=== PATIENT | female | born 1945 | race Caucasian/White ===

== ENCOUNTER → 2021-02-26 12:24 | Outpatient (CLI) | payer MEDICARE, OTHER, SELFPAY | PROVIDERS: Visit Provider Physician Assistant Surgical | DX: Z11.52 Encounter for screening for COVID-19 (principal) | CPT/HCPCS: 87635; C9803; U0005; U0003 ==

== ENCOUNTER 2024-01-25 15:54 | Inpatient (IN) | payer MEDICARE, OTHER, SELFPAY ==
[2024-01-25 16:04] VITALS: BP 165/52; PULSE 68; RESP 16; TEMP 36.9; O2SAT 97
[2024-01-25 17:15] VITALS: BP 165/52; PULSE 68; RESP 16; TEMP 36.9; O2SAT 97
[2024-01-25 18:07] VITALS: BMI 24.9
[2024-01-25] MEDS: Acetaminophen 325 MG Tablet 650 MG PO (18:16)
[2024-01-25 21:33] VITALS: BP 155/57; PULSE 69
[2024-01-25] MEDS: Metoprolol Tartrate 25 MG Tablet PO (21:33)
[2024-01-25 21:59] LABS: Bedside Glucose 128 mg/dL (74-106)
[2024-01-25] MEDS: traZODone 50 MG Tablet PO (22:05)
[2024-01-25 22:27] VITALS: BP 155/57; PULSE 69
[2024-01-26] MEDS: Enoxaparin 40 MG/0.4 ML Syringe SC (05:56)
[2024-01-26 05:59] VITALS: BP 170/58; PULSE 76; RESP 18; TEMP 36.4; O2SAT 95
[2024-01-26 06:12] LABS: Absolute Lymphocyte Count 0.85 X10^3/uL (0.83-4.51); Absolute Neutrophil Count 3.7 X10^3/uL (2.0-7.7); Basophil# 0.03 X10^3/uL; Basophil% 0.6 % (0-1); Eosinophil# 0.18 X10^3/uL; Eosinophils% 3.4 % (0-5); Hematocrit 29.1 % (37-47); Hemoglobin 9.6 g/dL (12.0-15.0); Lymphocyte # 0.85 X10^3/ul (0.83-4.51); Mean Corpuscular Hgb 32.5 pg (27.0-32.0); Mean Corpuscular Volume 98.6 fL (81-99); Monocyte# 0.48 X10^3/uL; Monocyte% 9.1 % (0-10); NRBC Flagged by Analyzer 0 % (0-5); Neutrophil # 3.74 X10^3/uL (2.7-7.7); Neutrophil % 70.5 % (47-70); Platelet Count 232 K/mm3 (150-450); RBC Distribution Width CV 13.4 % (11.6-14.6); RBC Distribution Width SD 48.6 fl (35.1-43.9); Red Blood Count 2.95 M/mm3 (4.2-5.4); White Blood Count 5.3 K/mm3 (4.4-11.0)
[2024-01-26 06:34] LABS: Bedside Glucose 111 mg/dL (74-106)
[2024-01-26 06:49] LABS: ALB/GLOB Ratio 0.7 RATIO (0.9-2.4); AST(SGOT) 16 U/L (15-37); Alanine Aminotransfer ALT/SGPT 20 U/L (13-56); Albumin, Serum 2.4 g/dL (3.2-5.0); Alkaline Phosphatase 50 U/L (45-117); Anion Gap 5 (5-15); BUN 19 mg/dL (7-18); BUN/Creat Ratio 23.5 RATIO (10-20); Calcium,Total 8.7 mg/dL (8.5-10.1); Chloride 102 mmol/L (98-107); Creatinine, Serum 0.81 mg/dL (0.55-1.02); EST Glomerular Filtration Rate 73 mL/min (>60); Est Glom Filt Rate - Afr Amer 88 mL/min (>60); Estimated Creatinine Clearance 41.12 ml/min; Globulin 3.3 g/dL (2.2-4.2); Glucose 114 mg/dL (74-106); Magnesium 1.9 mg/dL (1.6-2.6); Phosphorus 4.4 mg/dL (2.5-4.9); Protein, Total 5.7 g/dL (6.4-8.2); Sodium Level 134 mmol/L (136-145)
[2024-01-26] MEDS: hydroCHLOROthiazide 12.5mg 12.5 MG PO (07:43)
[2024-01-26] MEDS: Omega-3 Acid Ethyl Esters 1 GM Capsule PO (07:43)
[2024-01-26] MEDS: Senna/Docusate Sodium 1 Tablet 2 TABLET PO (07:43)
[2024-01-26] MEDS: Ezetimibe 10 MG Tablet PO (07:43)
[2024-01-26] MEDS: Sertraline 100 MG Tablet PO (07:43)
[2024-01-26] MEDS: Lisinopril 40 MG Tablet PO (07:43)
[2024-01-26] MEDS: Clopidogrel Bisulfate 75 MG Tablet PO (07:43)
[2024-01-26 07:44] VITALS: PULSE 76
[2024-01-26] MEDS: Cholecalciferol (VIT D3) 25 MCG TABLET (1,000 UNITS) PO (07:44)
[2024-01-26] MEDS: Atorvastatin Calcium 80 MG Tablet PO (07:44)
[2024-01-26] MEDS: Metoprolol Tartrate 25 MG Tablet PO ×2 (07:44→21:12)
[2024-01-26] MEDS: Potassium Chloride Oral Tablet 20 MEQ PO (07:44)
[2024-01-26 11:56] LABS: Bedside Glucose 113 mg/dL (74-106)
--- NOTE | 2024-01-26 12:10 | PCM.HP.STD ---
[facility] - General General Date of Admission: 01/25/24 Date of Service: 01/26/24 Chief Complaint: Debility secondary to a fall resulting in trimalleolar fracture of the left ankle with history of ORIF. HPI Narrative TAMARA FIERRO, is a 78 YO F with a PMH of coronary artery disease with history of WA, history of PTCA with stents in 2011, carotid stenosis with history of left carotid endarterectomy, hypertension, dyslipidemia and anxiety/depression who fell while walking her dog on 01/21/2024 and sustained a trimalleolar fx of the L ankle. She underwent open reduction internal fixation with a semitubular plate laterally, partially threaded cancellous bone screw medially and 2 cannulated screws anterior posterior for the posterior malleolar fragment on 01/22/[address] Donnell Addison MD. She is NWB on the LLE. Post op she was seen by PT/OT and acute inpt rehab was recommended at [place] from the hospital. She was transferred to the acute inpt rehab units at [facility] on 01/25/24 for 3 hours of therapy daily to restore function/independence at or near her level prior to the fall. She will be able to live on the first floor of her home and not have to deal with stairs while she is convalescing. Family will be available to stay with her 24 hours a day to assist her. Review of the chart from the previous hospital says she has DM II and she was on Metformin BUT, pt denies being diabetic and tells me that she has never been on Metformin. Review of the blood sugar record since arrival at [facility] shows the blood sugars to range from 111 (fasting this morning) to 128 at bedtime last night. She is afebrile. Blood pressures have ranged from 155/57 to 170/58 since admission to rehab. Heart rate is within normal limits. She is maintaining appropriate oxygen saturation on room air. All lab drawn this morning was personally reviewed. White blood cell count is normal at 5.3. Hemoglobin is 9.6 and was 10.9 at the previous hospital. MCV is normal. RDW is increased. Sodium is mildly decreased at 134 and the potassium is 4.0. The BUN is elevated at 19 and the creatinine is 0.81 with a BUN/creatinine ratio of 23.5. Mucous membranes are dry and she was encouraged to increase her fluid intake. Calcium, phosphorus and magnesium are all within normal limits. Bilirubin, alk phos and transaminases are within normal limits. [facility] Medical History (Updated 01/26/24 @ 13:[address] Adwoa Parikh, ) Insomnia Anxiety and depression Left carotid stenosis Coronary artery disease Hyperlipidemia HTN (hypertension) History of WA (myocardial infarction) Home Medications ?Medication ?Instructions ?Recorded ?Last Taken ?Type atorvastatin 20 mg tablet (Lipitor) 40 mg PO DAILY cholesterol 08/14/20 01/25/24 History trazodone 50 mg tablet 50 mg PO DAILY sleep 08/14/20 01/24/24 History cholecalciferol (vitamin D3) 25 25 mcg PO BID supplement 01/25/24 Unknown History mcg (1,000 unit) capsule clopidogrel 75 mg tablet (Plavix) 75 mg PO DAILY AFIB 01/25/24 01/25/24 History enoxaparin 40 mg/0.4 mL 40 mg subcut DAILY DVT 01/25/24 Unknown History subcutaneous syringe (Lovenox) ezetimibe 10 mg tablet 10 mg PO DAILY cholesterol 01/25/24 01/25/24 History hydrochlorothiazide 12.5 mg capsule 12.5 mg PO DAILY blood pressure 01/25/24 01/25/24 History lisinopril 40 mg tablet 40 mg PO DAILY blood pressure 01/25/24 01/25/24 History metoprolol tartrate 25 mg tablet 25 mg PO BID blood pressure 01/25/24 01/25/24 History omega 8-vxs-kiy-fish oil 300 1 cap PO DAILY supplement 01/25/24 01/25/24 History mg-1,000 mg capsule (Fish Oil) oxycodone 5 mg tablet 5 mg PO Q6H PRN pain 01/25/24 Unknown History potassium chloride 20 mEq 20 meq PO DAILY supplement 01/25/24 01/25/24 History tablet,extended release (K-Tab) sertraline 100 mg tablet 100 mg PO DAILY depression 01/25/24 01/25/24 History Allergy/AdvReac Type Severity Reaction Status Date / Time azithromycin (From Zithromax) Allergy Mild unknown Verified 02/26/21 09:36 Family History Brother Heart disease Surgical History (Updated 01/26/24 @ 12:[address] Adwoa Parikh DO) Status post open reduction and internal fixation (ORIF) of fracture History of left-sided carotid endarterectomy History of coronary angioplasty with insertion of stent History of heart artery stent Social History (Updated 01/26/24 @ 13:[address] Adwoa Parikh DO) household members: none housing: house number of children: 2 pets and animals: Yes pets and animals: dog(s) Smoking Status: Former smoker how long ago did patient quit smokin years ago ROS Constitutional Constitutional: Reports other Details: Having some trouble sleeping at night since admission to the hospital. She is on trazodone 50 mg at at bedtime. Denies any trouble sleeping prior to hospitalization. ; Denies anorexia, change in weight, chills, fatigue, fever(s), night sweats or weakness Eyes Eyes: Denies blurry vision, change in vision, eye pain or loss of vision ENT HEENT: Denies abnormal hearing, dysphagia, headache(s), hearing loss, nasal congestion or sore throat Cardiovascular Cardiovascular: Denies chest pain, dyspnea on exertion, edema, lightheadedness, orthopnea, palpitations, paroxysmal nocturnal dyspnea or syncope Respiratory/Chest Respiratory/Chest: Denies cough, dyspnea, shortness of breath at rest, shortness of breath with exertion or wheezing Gastrointestinal Gastrointestinal: Denies abdominal pain, constipation, diarrhea, dyspepsia, hematemesis, hematochezia, nausea or vomiting Genitourinary Genitourinary: Denies dysuria, hematuria, nocturia, urinary frequency, urinary hesitancy, urinary incontinence or urinary urgency Musculoskeletal Musculoskeletal: Reports other Details: Vitaliy any pain in the LLE at this time. ; Denies back pain, joint pain, joint swelling or neck pain Neurologic Neurologic: Denies confusion, disequilibrium, dizziness, focal weakness, frequent falls, headache(s), memory loss, paresthesias, radicular pain, restless legs, seizures, tremor(s) or vertigo Psychiatric Psychiatric: Denies anxiety, depression, homicidal ideation or suicidal ideation Endocrine Endocrinology: Denies change in body appearance, polydipsia or polyuria Hematologic/Lymphatic Hematologic/Lymphatic: Denies easy bleeding, easy bruising or lymphadenopathy Allergic/Immunologic Allergic/Immunologic: Denies rhinitis, eczemia or asthma Vital Signs Vital Signs Vital Signs: 01/25/24 16:04 01/25/24 17:15 01/25/24 18:08 Temperature 98.4 F 98.4 F Temperature Source Oral Temporal Pulse Rate 68 68 Respiratory Rate 16 16 Respiratory Effort Normal Non-Labored Respiratory Depth Normal Respiratory Pattern Normal Blood Pressure 165/52 H 165/52 H Blood Pressure Mean 89 89 Blood Pressure Source Monitor Monitor Blood Pressure Position Sitting Sitting Blood Pressure Location Left Arm Left Arm Pulse Ox 97 97 Oxygen Delivery Method Room Air Room Air Room Air 01/25/24 21:33 01/25/24 22:27 01/26/24 05:59 Temperature 97.6 F L Temperature Source Temporal Pulse Rate 69 69 76 Respiratory Rate 18 Respiratory Effort Respiratory Depth Respiratory Pattern Blood Pressure 155/57 H 155/57 H 170/58 H Blood Pressure Mean 89 95 Blood Pressure Source Monitor Monitor Blood Pressure Position Semi-Fowlers Semi-Fowlers Blood Pressure Location Left Arm Left Arm Pulse Ox 95 Oxygen Delivery Method Room Air 01/26/24 07:44 Temperature Temperature Source Pulse Rate 76 Respiratory Rate Respiratory Effort Respiratory Depth Respiratory Pattern Blood Pressure Blood Pressure Mean Blood Pressure Source Blood Pressure Position Blood Pressure Location Pulse Ox Oxygen Delivery Method Weight Weight: 115 lb 4.828 oz Body Mass Index (BMI) 24.9 Physical Exam Const alert, oriented x3, no apparent distress, average body habitus, healthy appearing and well nourished General Appearance: cooperative and well kempt HEENT normocephalic, head/scalp atraumatic and hearing grossly normal bilaterally HEENT Narrative: Mucous membranes are somewhat dry. No evidence of thrush. Eyes PERRL, EOMs intact bilaterally, conjunctivae normal and no scleral icterus Eyes Narrative: No mattering of the eyelashes and no discharge from the eyes. General Eye: normal appearance of both eyes Neck supple, No nodes and No no carotid bruits Neck Narrative: Carotids have brisk upstroke and good pulse volume. 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 Chest Chest: symmetrical chest wall rise Resp normal respiratory effort, normal air movement and clear to auscultation bilaterally Resp Narrative: No cough when taking deep breaths. Effort and Inspection: able to speak in complete sentences Cardio regular rate, regular rhythm, S1 normal heart sound, S2 normal heart sound, no murmurs, no rub and no gallops Cardio Narrative: No ectopy GI normal to inspection, nondistended, normoactive bowel sounds, soft to palpation and non-tender GI Narrative: No guarding with palpation Extremity Extremity Narrative: She is having some spasm in the tibialis anterior muscles when sitting in a chair. Denies any pain in the hamstrings or in the gastrocnemius muscles. She has intact sensation in the right foot and the toes are warm. There is some bruising of the toes of the left foot. The left dorsalis pedis pulse is strong. Skin no jaundice Skin Narrative: No rashes General Skin Exam: no breakdown Neuro moves all extremities, no focal motor deficits and no sensory deficits noted Neuro Narrative: She has a mild R facial droop......with smiling can not see as many teeth on the R side. She has never noticed this. Denies hx of stroke but, has had a L CEA. She also denies hx of [place]'s palsy. All other cranial nerves are intact bilaterally. Tongue protrudes on the midline. Psych mental status grossly normal, thought process normal, cooperative, affect normal, speech normal, activity/motor behavior normal, denies hallucinations, denies homicidal ideation and denies suicidal ideation Appearance: grossly normal, appropriate and well kempt Attitude: calm Activity / Motor Behavior: appropriate eye contact Results Lab / Micro Data 01/26/24 05:10 01/26/24 05:10 Labs: Laboratory Results - last 24 hr 01/25/24 21:24: POC Glucose 128 H 01/26/24 05:10: WBC 5.3, RBC 2.95 L, Hgb 9.6 L, Hct 29.1 L, MCV 98.6, MCH 32.5 H, MCHC 33.0, RDW Std Deviation 48.6 H, RDW Coeff of [place] 13.4, Plt Count 232, MPV 10.0, Immature Gran % (Auto) 0.400, Neut % (Auto) 70.5 H, Lymph % (Auto) 16.0 L, [place]lan % (Auto) 9.1, Eos % (Auto) 3.4, Baso % (Auto) 0.6, Absolute Neuts (auto) 3.7, Absolute Lymphs (auto) 0.85, Nucleated RBC % 0, Sodium 134 L, Potassium 4.0, Chloride 102, Carbon Dioxide 27.0, Anion Gap 5, BUN 19 H, Creatinine 0.81, Estim Creat Clear Calc 41.12, Est GFR (MDRD) Af Amer 88, Est GFR (MDRD) Non-Af 73, BUN/Creatinine Ratio 23.5 H, Glucose 114 H, Calcium 8.7, Phosphorus 4.4, Magnesium 1.9, Total Bilirubin 0.40, AST 16, ALT 20, Alkaline Phosphatase 50, Total Protein 5.7 L, Albumin 2.4 L, Globulin 3.3, Albumin/Globulin Ratio 0.7 L 01/26/24 06:03: POC Glucose 111 H 01/26/24 11:37: POC Glucose 113 H Assessment & Plan Assessment/Plan (1) Physical debility: (2) History of fall: (3) Trimalleolar fracture of left ankle: QUALIFIERS: Encounter type: subsequent encounter Fracture type: closed (4) Status post open reduction and internal fixation (ORIF) of fracture: (5) Acute blood loss as cause of postoperative anemia: (6) Hyponatremia: (7) Dehydration: (8) Insomnia: QUALIFIERS: Insomnia type: unspecified Qualified Code(s): G47.00 - Insomnia, unspecified (9) Anxiety and depression: (10) Coronary artery disease: QUALIFIERS: Coronary Disease-Associated Artery/Lesion type: [place] artery [place] vs. transplanted heart: [place] heart Associated angina: without angina Qualified Code(s): I25.10 - Atherosclerotic heart disease of [place] coronary artery without angina pectoris (11) HTN (hypertension): QUALIFIERS: Hypertension type: primary hypertension Qualified Code(s): I10 - Essential (primary) hypertension PLAN: Plan PT for gait stability OT for ADL's Analgesics as needed Bowel protocol Fall precautions Assess for Anxiety/Depression GI prophylaxis -unnecessary at this time. She denies heartburn, nausea/vomiting/abdominal pain/history of peptic ulcer disease. DVT prophylaxis with enoxaparin 40 mg daily subcu Follow up with PCP and Dr. Addison Following DC from [facility] - she is to have an appt with Dr. Addison in 2 weeks.....will need to reschedule if she will be in rehab at that time. If we need to reschedule will find out what Xrays orthopedics wants and do them at [facility] AM lab including CMP, CBC, Mag and Phos - all personally reviewed. Will check a HGBA1C. Pt denies a hx of DM II and has never been on Metformin. Will DC insulin and accuchecks. Seems a little anxious and has not been sleeping well. Will increase the Trazodone to 100 mg at 9 PM nightly. Put in a PRN order for systolic > 170. Charges/Coding Visit Charges Inpatient E&M: 16369 Init Hosp L2
[2024-01-26 13:16] LABS: Hemoglobin A1c 5.5 % (3.8-5.6)
[2024-01-26] MEDS: Ondansetron ODT 4 MG Tablet PO (13:27)
--- NOTE | 2024-01-26 14:38 | REHABEVAL_ITS ---
Admission Information Primary Diagnosis:: Debility secondary to trimalleolar fracture of the left ankle with ORIF. Status Changes from Prescreening?: No changes Identified Actual Problem List:: Falls, Skin Intergrity, Pain, ALteration in Cmfrt, Depression, Alteration in Sleep, Mobility Impaired, Self Care Deficit, BP, Hypertension, Fluid Change-Dehydration and Alteration-Leisure Activ. Potential Problem List:: DVT, Bleeding, Infection, UTI, Aspiration, Falls, Skin Integrity and Depression Risk of Complications DVT: LMWH and JOSE Hose Bleeding: Monitor Lab Values, Nursing to Teach Precautions for anti-coagulation therapy., Wound, if applicable, to be assessed every shift. and Stroke patients assessed for lethargy or change in status. Infection: Clinical Staff to Monitor for S/S of infection: and S/S of infection include fever, redness, warmth, etc. Urinary Tract Infection: Monitor for frequency, burning, discomfort, or incontinence. and Nursing will obtain urine sample for urinalysis and C&S when ordered. Aspiration: Clinical staff will monitor for coughing, drooling, congestion., Speech will evaluate swallowing and dsyphasia. and Nursing will monitor patient swallowing during meals. Falls: Patient will be evaluated for Fall Precautions and Patient will be placed on Fall Precautions as indicated per protocol. Skin Breakdown: Nursing will assess skin daily using assessment tool. and Nursing will place on Skin Breakdown Precautions as indicated. Pain: Clinical staff will assess patient's pain level per protocol., Medications will be given, if needed, and the pain level reassessed. and Other methods: Massage, distraction, decrease stimulus, etc. used PRN. Plan of Care Patient requires physician specializing in physical medicine and rehab oversight to provide close medical supervision of rehab issues including: Pain Management, Sleep Problems, Bowel and Bladder, Medical and co-morbidity Management, DVT prophylaxis, Rehabilitation Leadership and Coordination of treatment team Patient needs Physical Therapy: For a minimum of 1 hour and At least 5 out of 7 days Patient needs Physical Therapy to improve:: Mobility, Strengthening, Transfers, Stretching, ROM, Endurance, Stairs, Gait and Balance Patient needs Occupational Therapy: For a minimum of 1 hour and At least 5 out of 7 days Patient needs Occupational Therapy to improve ADL's incl.: Eating, Grooming, Bathing, Dressing, Toileting, Toilet transfers, Community Reintegration, Higher functioning activities, Household tasks, Adaptive Equipment, Splinting and Other activities as determined Patient requires 24/7 Rehabilitation Nursing for: Pain Issues, Identifying and preventing risk factors, Monitoring and reporting current medical conditions, Assisting with ambulation, transfer, and all ADL's, Teaching patients about disease process and medications, Family teaching, Providing safe environment, Bowel and Bladder Issues, Skin integrity and Medication Management Patient needs Plumbing Engineering Draftsperson/ Case Management for: Discharge Planning, Arranging Home Equipment or Services and Family Interventions Patient needs Dietary and Nutrition Services for: Adequate Nutrition, Nutritional Supplements and Nutritional Education Goals Goals Patient will remain: free from falls Patient will perform eating at: MOD I level of assist. Patient will perform bed mobility at: MOD I level of assist. Patient will ambulate: - (She will hop 25' on various surfaces with a WW while maintaining NWB on the LLE) Patient will complete upper body dressing at: MOD I level of assist. Patient will complete lower body dressing at: MOD I level of assist. (with AE as needed) Patient will complete toilet transfer at: MOD I level of assist. Patient will complete toileting at: MOD I level of assist. Patient will perform bathing at: - (supervision while sitting on a shower chair) Patient will perform Tub/Shower transfer at: - (supervision) Patient will complete grooming at: MOD I level of assist. (while seated) Patient will achieve: - (1 curb step with a WW at CGA to allow access to ramp entrance) Patient will have pain level of: of 3 or less Patient's skin will: remain intact Patient will receive: adequate nutrition. Discharge Planning Pt Prognosis for Sig. Practical Improv. w/in Reasonable Time: Good Estimated Length of stay (days): 21 Anticipated D/C Destination: Home with Home Health (family also avalable for support) Was Preadmission Assessment Accurate?: Yes
[2024-01-26] MEDS: Ensure Plus High Protein 120 ML LIQUID PO (16:44)
[2024-01-26 17:50] VITALS: BP 164/46; PULSE 74; RESP 16; TEMP 36.9; O2SAT 97
[2024-01-26] MEDS: traZODone 100 MG Tablet PO (21:11)
[2024-01-26 21:12] VITALS: BP 164/53; PULSE 75
[2024-01-26] MEDS: Acetaminophen 325 MG Tablet 650 MG PO (21:13)
[2024-01-27] VITALS (7 sets, daily range): BP systolic 130–162; BP diastolic 49–70; PULSE 64–77; RESP 15–16; TEMP 36.3–36.6; O2SAT 95–97; BMI 25.1
[2024-01-27] MEDS: Enoxaparin 40 MG/0.4 ML Syringe SC (05:15)
[2024-01-27] MEDS: Potassium Chloride Oral Tablet 20 MEQ PO (08:01)
[2024-01-27] MEDS: Omega-3 Acid Ethyl Esters 1 GM Capsule PO (08:02)
[2024-01-27] MEDS: Cholecalciferol (VIT D3) 25 MCG TABLET (1,000 UNITS) PO ×2 (08:02→21:00)
[2024-01-27] MEDS: hydroCHLOROthiazide 12.5mg 12.5 MG PO (08:02)
[2024-01-27] MEDS: Lisinopril 40 MG Tablet PO (08:03)
[2024-01-27] MEDS: Ezetimibe 10 MG Tablet PO (08:03)
[2024-01-27] MEDS: Sertraline 100 MG Tablet PO (08:03)
[2024-01-27] MEDS: Clopidogrel Bisulfate 75 MG Tablet PO (08:04)
[2024-01-27] MEDS: Metoprolol Tartrate 25 MG Tablet PO ×2 (08:04→20:56)
[2024-01-27] MEDS: Ondansetron ODT 4 MG Tablet PO (10:51)
[2024-01-27] MEDS: Loperamide 2 MG Capsule PO (14:04)
--- NOTE | 2024-01-27 16:36 | CASEMGMT ---
Social Work- Met with pt to complete initial assessment. Introduced self and role. Verified/updated contacts. Patient confirmed code status as full code.Requested pt/family provide copies of advanced directives. Educated to Medicare benefit and copay coverage. Pt?s goal is to return home with assistance from daughter and son. Pt BIMS 14/15. PHQ9 0. Denies feelings of isolation. SW will continue to follow for DC planning. JESSICA Polanco
[2024-01-27 18:31] LABS: Bacteria 0 SEEN /hpf (None Seen); Mucous, Urine 0 SEEN /hpf (<or=2+); Red Blood Cells-Urine 0 SEEN /hpf (0-5); Squamous Epithelial Cells - UA 0 SEEN /hpf (5-10); White Blood Cells 0 SEEN /hpf (0-5)
[2024-01-27 18:38] LABS: Color, Urine Yellow (Yellow); Glucose, Dipstick Normal (Normal); Ketone-Dipstick Negative (Negative); Leukocyte Esterase-Dipstick Negative /ul (Negative); Nitrite-Dipstick Negative (Negative); Occult Blood-Urine Negative /ul (Negative); Protein-Dipstick Negative (Negative); Specific Gravity, Urine 1.015 (1.002-1.030); Urine Bilirubin Dipstick Negative (Negative); Urine Clarity Clear (Clear); Urine Urobilinogen Normal (Normal)
[2024-01-27] MEDS: Acetaminophen 325 MG Tablet 650 MG PO (19:33)
[2024-01-27] MEDS: traZODone 100 MG Tablet PO (20:56)
[2024-01-27] MEDS: Atorvastatin Calcium 80 MG Tablet PO (20:58)
[2024-01-27] MEDS: Ensure Plus High Protein 120 ML LIQUID PO (21:00)
[2024-01-28] MEDS: Enoxaparin 40 MG/0.4 ML Syringe SC (05:27)
[2024-01-28 06:00] VITALS: BP 152/53; PULSE 62; RESP 16; TEMP 35.8; O2SAT 96
[2024-01-28 06:01] LABS: Hematocrit 30.7 % (37-47)
[2024-01-28 06:27] LABS: Anion Gap 5 (5-15); BUN 27 mg/dL (7-18); BUN/Creat Ratio 32.1 RATIO (10-20); Calcium,Total 9.3 mg/dL (8.5-10.1); Chloride 100 mmol/L (98-107); Creatinine, Serum 0.84 mg/dL (0.55-1.02); EST Glomerular Filtration Rate 69 mL/min (>60); Est Glom Filt Rate - Afr Amer 84 mL/min (>60); Estimated Creatinine Clearance 39.65 ml/min; Glucose 113 mg/dL (74-106); Potassium 4.5 mmol/L (3.5-5.1); Sodium Level 132 mmol/L (136-145)
[2024-01-28 07:43] VITALS: PULSE 62
[2024-01-28] MEDS: Acetaminophen 325 MG Tablet 650 MG PO ×2 (07:43→22:09)
[2024-01-28] MEDS: Sertraline 100 MG Tablet PO (07:43)
[2024-01-28] MEDS: Ezetimibe 10 MG Tablet PO (07:43)
[2024-01-28] MEDS: Lisinopril 40 MG Tablet PO (07:43)
[2024-01-28] MEDS: Clopidogrel Bisulfate 75 MG Tablet PO (07:43)
[2024-01-28] MEDS: Cholecalciferol (VIT D3) 25 MCG TABLET (1,000 UNITS) PO (07:43)
[2024-01-28] MEDS: Potassium Chloride Oral Tablet 20 MEQ PO (07:43)
[2024-01-28] MEDS: Metoprolol Tartrate 25 MG Tablet PO ×2 (07:43→22:09)
[2024-01-28] MEDS: Omega-3 Acid Ethyl Esters 1 GM Capsule PO (07:44)
[2024-01-28] MEDS: Ensure Plus High Protein 120 ML LIQUID PO ×2 (07:47→22:08)
--- NOTE | 2024-01-28 11:48 | PN_ITS ---
Subjective Subjective Pat was seen on team rounds today. Her daughter Halima was present in the room for rounds. Afebrile VSS -blood pressure over the past 24 hours has ranged from 130/72 162/57. The systolic was less than 140 on only 1 occasion yesterday. Orthostatic vital signs yesterday were negative. Maintaining appropriate oxygen saturation on RA Oral intake - FOOD good FLUIDS good Discussed with nursing - no problems that need addressed Reviewed the THERAPY notes Medication list reviewed. Diarrhea has resolved. She denies nausea today and she tells me she slept well last night again. She denies nausea/vomiting/abdominal pain, lightheadedness, cephalgia, cough, shortness of breath, dysuria and calf pain. All lab drawn today was personally reviewed. Hemoglobin is stable at 10. Sodium is low at 132 and the potassium is 4.5. The BUN is increased at 27 and the creatinine is stable at 0.84. The BUN/creatinine ratio was 32.1. UA yesterday showed 0 bacteria and 0 WBCs. She denies pain in the Left leg. Objective Data Objective Data Vital Signs: Vital Signs Temp Pulse Resp BP Pulse Ox O2 Del Method 96.5 F L 62 16 152/53 H 96 Room Air 01/28/24 06:00 01/28/24 07:43 01/28/24 06:00 01/28/24 06:00 01/28/24 06:00 01/28/24 10:00 Oxygen Delivery Method Room Air Weight: 116 lb 8 oz Body Mass Index (BMI) 25.1 Intake & Output: Intake and Output for Last 24 Hours 01/26/24 01/27/24 01/28/24 23:59 23:59 23:59 Intake Total 2060 / 2410 1780 / 1780 340 / 340 Output Total 1500 / 1800 2049 / 2049 400 / 400 Balance 560 / 610 -270 / -270 -60 / -60 Lab / Micro Data 01/28/24 05:12 01/28/24 05:12 Labs: Laboratory Results - last 24 hr 01/27/24 17:40: Urine Color Yellow, Urine Clarity Clear, Urine pH 6.0, Ur Specific [place] 1.015, Urine Protein Negative, Urine Glucose (UA) Normal, Urine Ketones Negative, Urine Occult Blood Negative, Urine Nitrite Negative, Urine Bilirubin Negative, Urine Urobilinogen Normal, Ur Leukocyte Esterase Negative, Urine RBC 0 SEEN, Urine WBC 0 SEEN, Ur Squamous Epith Cells 0 SEEN, Urine Bacteria 0 SEEN, Urine Mucus 0 SEEN 01/28/24 05:12: Hgb 10.0 L, Hct 30.7 L, Sodium 132 L, Potassium 4.5, Chloride 100, Carbon Dioxide 27.0, Anion Gap 5, BUN 27 H, Creatinine 0.84, Estim Creat Clear Calc 39.65, Est GFR (MDRD) Af Amer 84, Est GFR (MDRD) Non-Af 69, B UN/Creatinine Ratio 32.1 H, Glucose 113 H, Calcium 9.3 Physical Exam Const alert, oriented x3 and no apparent distress Constitutional Narrative: somewhat apprehensive about ambulating because yesterday she felt weak while standing and felt as though her legs were going to give out. General Appearance: cooperative HEENT Mouth: dry mucous membranes Resp normal respiratory effort, normal air movement and clear to auscultation bilaterally Resp Narrative: No cough when taking deep breaths. Effort and Inspection: able to speak in complete sentences Cardio regular rate, regular rhythm, no murmurs and no gallops Cardio Narrative: No ectopy GI normal to inspection, nondistended, normoactive bowel sounds, soft to palpation and non-tender GI Narrative: No guarding with palpation Skin Skin Narrative: No rashes General Skin Exam: no breakdown Assessment & Plan Assessment/Plan (1) Physical debility: (2) History of fall: (3) Trimalleolar fracture of left ankle: QUALIFIERS: Encounter type: subsequent encounter Fracture type: c losed (4) Status post open reduction and internal fixation (ORIF) of fracture: (5) Acute blood loss as cause of postoperative anemia: (6) Hyponatremia: (7) Dehydration: (8) Insomnia: QUALIFIERS: Insomnia type: unspecified Qualified Code(s): G47.00 - Insomnia, unspecified (9) Anxiety and depression: (10) Coronary artery disease: QUALIFIERS: Coronary Disease-Associated Artery/Lesion type: [place] artery [place] vs. transplanted heart: [place] heart Associated angina: without angina Qualified Code(s): I25.10 - Atherosclerotic heart disease of [place] coronary artery without angina pectoris (11) HTN (hypertension): QUALIFIERS: Hypertension type: primary hypertension Qualified Code(s): I10 - Essential (primary) hypertension (12) Osteoporosis: QUALIFIERS: Osteoporosis type: age-related Encounter type: s ubsequent encounter PLAN: Plan 1. Continue therapy 2. Check a vitamin D level 3. I suspect the weakness when standing she experienced yesterday was related to severe diarrhea and dehydration. Will start IV normal saline and run 2 L and then Hep-Lock. 4. She has not been taking vitamin D as an outpatient because she felt that it caused insomnia. She has been on vitamin D since arrival on rehab and she is sleeping well now that trazodone has been increased to 100 mg daily. She is agreeable to continuing vitamin D. Has not had a DEXA in 2 or 3 years and I recommended she ask her primary care physician about repeating a DEXA postdischarge. 5. Add calcium 500 mg twice daily to the current drug regimen for history of osteoporosis. 6. Place hydrochlorothiazide on hold. 7. Continue hydralazine as needed but if the blood pressure stays elevated for the next 48 hours will need to add another medication for blood pressure control. Current antihypertensives include lisinopril, metoprolol and hydrochlorothiazide Charges/Coding Visit Charges Inpatient E&M: 03946 Subs Hosp L2
--- NOTE | 2024-01-28 13:06 | CASEMGMT ---
Social Work IDT met with pt and dtr for Team meeting. Discussed patient's progress in PT/OT/SN. Educated to Medicare benefit and will notify pt/dtr with [facility] once received. Pt's goal is to DC home at [facility]. SW to coordinate needs at DC. SW will continue to follow. Will ReTeam weekly. Jessenia Schmidt, EXCAVATING CONTRACTOR SEAMLESS TUBE ROLLER
--- NOTE | 2024-01-28 15:48 | CHAPLAIN ---
Type of Pastoral Visit _x__ Initial Visit ___ Follow-up Visit ___ On-call Visit ___ General Patient Visit ___ Spiritual Assessment ___ Family Conference ___ Bereavement ___ Rapid Response ___ Code Blue ___ Other (describe below) Pastoral Care Referral From _x__ Patient ___ Family ___ Nurse ___ Physician ___ Laborer Landscape ___ Microbiology Lab Manager ___ Other (describe below) Sacrament/Intervention _x__ Active listening ___ Anointing ___ Restorationism ___ Bereavement ___ Communion ___ Coco exploration ___ _x__ Life review _x__ Prayer ___ Reconciliation ___ Sacrament of Sick ___ Supportive presence ___ Wedding ___ Other (describe below) Pastoral Comments patient is welcoming and expresses thankfulness for the great care she is receiving from the staff; pt reports having almost no pain, with good family support, and optimism that things will continue to go well; 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
[2024-01-28] MEDS: Calcium Carbonate 500 MG Tablet PO (16:33)
[2024-01-28] MEDS: 0.9% Normal Saline (1000mL) 1,000 ML 100 ML IV (16:34)
[2024-01-28 16:41] LABS: Vitamin D,25 Hydroxy 29.3 ng/mL
[2024-01-28 18:00] VITALS: BP 146/49; PULSE 66; RESP 17; TEMP 36.8; O2SAT 96
[2024-01-28 21:00] VITALS: PULSE 73; RESP 16; O2SAT 94
[2024-01-28] MEDS: traZODone 100 MG Tablet PO (22:08)
[2024-01-28 22:09] VITALS: BP 180/63; PULSE 73
[2024-01-28] MEDS: Atorvastatin Calcium 80 MG Tablet PO (22:09)
[2024-01-28 22:40] VITALS: BP 180/63; PULSE 73
[2024-01-28] MEDS: hydrALAZINE 10 MG Tablet PO (22:40)
--- NOTE | 2024-01-28 22:46 | NURSING ---
Refused HS vitamin D as ordered despite education, states I told them I don't want it at night because it keeps me awake. Patient states agreeable to take in AM but will not longer accept medication at HS. A&Ox3. Written communication/update left for Dr. Parikh review in AM per patient request.
[2024-01-29] VITALS (8 sets, daily range): BP systolic 144–200; BP diastolic 47–73; PULSE 60–79; RESP 14–16; TEMP 36.7–37; O2SAT 96–99
[2024-01-29] MEDS: 0.9% Normal Saline (1000mL) 1,000 ML 100 ML IV (02:46)
[2024-01-29] MEDS: hydrALAZINE 10 MG Tablet PO (06:25)
[2024-01-29] MEDS: Enoxaparin 40 MG/0.4 ML Syringe SC (06:26)
[2024-01-29] MEDS: Calcium Carbonate 500 MG Tablet PO ×2 (08:58→17:39)
[2024-01-29] MEDS: Metoprolol Tartrate 25 MG Tablet PO ×2 (08:58→20:51)
[2024-01-29] MEDS: Potassium Chloride Oral Tablet 20 MEQ PO (08:58)
[2024-01-29] MEDS: Ensure Plus High Protein 120 ML LIQUID PO ×2 (08:58→20:51)
[2024-01-29] MEDS: Cholecalciferol (VIT D3) 25 MCG TABLET (1,000 UNITS) PO (08:59)
[2024-01-29] MEDS: Omega-3 Acid Ethyl Esters 1 GM Capsule PO (08:59)
[2024-01-29] MEDS: Sertraline 100 MG Tablet PO (08:59)
[2024-01-29] MEDS: Lisinopril 40 MG Tablet PO (08:59)
[2024-01-29] MEDS: Clopidogrel Bisulfate 75 MG Tablet PO (08:59)
[2024-01-29] MEDS: Ezetimibe 10 MG Tablet PO (08:59)
--- NOTE | 2024-01-29 12:41 | NURSING ---
IV dressing changed to LT FA d/t scant amt of leaking. flushed w/out any issues or leaking. pt denies pain/discomfort at site. no signs of redness/edema. pt eating lunch. IVF restarted at 100cc/hr for 1 more hour.
--- NOTE | 2024-01-29 15:07 | PN_ITS ---
Subjective Subjective Afebrile VSS -blood pressure over the past 24 hours has ranged from 144/47 to 180/63. Heart rate ranges from 60-79. Maintaining appropriate oxygen saturation on RA Oral intake - FOOD good FLUIDS good Discussed with nursing - no problems that need addressed. Refused to take Vitamin D at HS. It is ordered for twice a day. she was not taking any vitamin D prior to hospital admission. the vitamin D level is low normal. will decrease the dose to once a day in the AM. Reviewed the THERAPY notes Medication list reviewed. Antihypertensives include lisinopril 40 mg daily and metoprolol 25 mg twice daily. She has hydralazine 10 mg every 4 hours as needed ordered for blood pressure greater than 170/85 and it is not really bringing the systolic down significantly. Pat denies nausea, vomiting, diarrhea, abdominal pain, lightheadedness, cephalgia, chest pain, cough, sore throat, shortness of breath, dysuria and calf tenderness. She tells me she slept well last night. Objective Data Objective Data Vital Signs: Vital Signs Temp Pulse Resp BP Pulse Ox O2 Del Method 98.1 F 61 14 144/47 H 98 Room Air 01/29/24 06:00 01/29/24 10:36 01/29/24 10:36 01/29/24 08:58 01/29/24 10:36 01/29/24 10:36 Oxygen Delivery Method Room Air Weight: 116 lb 8 oz Body Mass Index (BMI) 25.1 Intake & Output: Intake and Output for Last 24 Hours 01/27/24 01/28/24 01/29/24 23:59 23:59 23:59 Intake Total 1780 / 1780 1460 / 1580 2540 / 2540 Output Total 2049 / 0 1650 / 1950 1300 / 1300 Balance -270 / -270 -190 / -370 1240 / 1240 Lab / Micro Data 01/28/24 05:12 01/28/24 05:12 Labs: Laboratory Results - last 24 hr 01/28/24 16:03: Vitamin D 25-Hydroxy 29.3 Physical Exam Const alert, oriented x3 and no apparent distress General Appearance: cooperative HEENT Mouth: dry mucous membranes Resp normal respiratory effort, normal air movement and clear to auscultation bilaterally Resp Narrative: No cough when taking deep breaths. Effort and Inspection: able to speak in complete sentences Cardio regular rate, regular rhythm, no murmurs and no gallops Cardio Narrative: No ectopy GI normal to inspection, nondistended, normoactive bowel sounds, soft to palpation and non-tender GI Narrative: No guarding with palpation Skin Skin Narrative: No rashes General Skin Exam: no breakdown Assessment & Plan Assessment/Plan (1) Physical debility: (2) History of fall: (3) Trimalleolar fracture of left ankle: QUALIFIERS: Encounter type: subsequent encounter Fracture type: c losed (4) Status post open reduction and internal fixation (ORIF) of fracture: (5) Acute blood loss as cause of postoperative anemia: (6) Hyponatremia: (7) Dehydration: (8) Insomnia: QUALIFIERS: Insomnia type: unspecified Qualified Code(s): G47.00 - Insomnia, unspecified (9) Anxiety and depression: (10) Coronary artery disease: QUALIFIERS: Coronary Disease-Associated Artery/Lesion type: [place] artery [place] vs. transplanted heart: [place] heart Associated angina: without angina Qualified Code(s): I25.10 - Atherosclerotic heart disease of [place] coronary artery without angina pectoris (11) HTN (hypertension): QUALIFIERS: Hypertension type: primary hypertension Qualified Code(s): I10 - Essential (primary) hypertension PLAN: Not adequately controlled. (12) Osteoporosis: QUALIFIERS: Osteoporosis type: age-related Encounter type: s ubsequent encounter PLAN: Plan 1. Continue therapy 2. Change the vitamin D to be given once a day in the a.m. rather than twice daily. 3. Encouraged her to increase her fluid intake since her mucous membranes are still dry. 4. Increase as needed hydralazine to 25 mg every 4 hours as needed for blood pressure greater than 170/85. 5. Increase metoprolol to 25 mg p.o. 3 times daily. If she tolerates this consider changing to metoprolol XL at at bedtime and continue lisinopril in the AM. 6. Discontinue hydrochlorothiazide - She is dehydrated Charges/Coding Visit Charges Inpatient E&M: 00028 Subs Hosp L1
--- NOTE | 2024-01-29 15:54 | NURSING ---
Cancelled Ortho appt on 02/01/24 @ 2:15pm, will reschedule at time of DC from rehab. Pt and daughter aware.
[2024-01-29] MEDS: hydrALAZINE 25 MG Tablet PO (17:39)
[2024-01-29] MEDS: Atorvastatin Calcium 80 MG Tablet PO (20:51)
[2024-01-29] MEDS: 0.9% Saline Lock 10 ML Syringe IV (20:59)
[2024-01-29] MEDS: traZODone 100 MG Tablet PO (21:47)
[2024-01-29] MEDS: Acetaminophen 325 MG Tablet 650 MG PO (21:51)
[2024-01-30] VITALS (9 sets, daily range): BP systolic 146–200; BP diastolic 54–73; PULSE 61–69; RESP 16–18; TEMP 36.6–37.2; O2SAT 96
--- NOTE | 2024-01-30 00:01 | NURSING ---
2144; Pt bp 200/70, hr 70. Pt lopressor increased and pt due for dose now. Pt had apresoline 25 mg at 1739. Not time for apresoline until 2138. Pt given lopressor as ordered. Bp checked twice to be sure of accuracy. Pt denies head ache, blurred vision or any other symptoms. Repeat bp at 2215; 166/56, hr 69. Pt had been assisting with washing up for bed. No complaints at this time. Pt instructed to call if she has any symptoms of head ache or blurred vision or feels any different than she does now.
[2024-01-30] MEDS: Metoprolol Tartrate 25 MG Tablet PO ×3 (06:23→22:06)
[2024-01-30] MEDS: Enoxaparin 40 MG/0.4 ML Syringe SC (06:23)
[2024-01-30] MEDS: Calcium Carbonate 500 MG Tablet PO ×2 (08:21→17:11)
[2024-01-30] MEDS: Potassium Chloride Oral Tablet 20 MEQ PO (08:21)
[2024-01-30] MEDS: Ezetimibe 10 MG Tablet PO (08:21)
[2024-01-30] MEDS: Cholecalciferol (VIT D3) 25 MCG TABLET (1,000 UNITS) PO (08:22)
[2024-01-30] MEDS: Lisinopril 40 MG Tablet PO (08:22)
[2024-01-30] MEDS: Omega-3 Acid Ethyl Esters 1 GM Capsule PO (08:22)
[2024-01-30] MEDS: Clopidogrel Bisulfate 75 MG Tablet PO (08:22)
[2024-01-30] MEDS: Sertraline 100 MG Tablet PO (08:22)
[2024-01-30] MEDS: Ensure Plus High Protein 120 ML LIQUID PO ×2 (08:22→22:06)
[2024-01-30] MEDS: Acetaminophen 325 MG Tablet 650 MG PO (20:12)
[2024-01-30] MEDS: traZODone 100 MG Tablet PO (22:06)
[2024-01-30] MEDS: Atorvastatin Calcium 80 MG Tablet PO (22:06)
[2024-01-30] MEDS: oxyCODONE 5 MG Tablet PO (22:58)
[2024-01-31] VITALS (8 sets, daily range): BP systolic 114–215; BP diastolic 34–75; PULSE 56–72; RESP 16–18; TEMP 36.6–37.2; O2SAT 96–97
[2024-01-31] MEDS: Acetaminophen 325 MG Tablet 650 MG PO ×2 (02:37→21:05)
[2024-01-31] MEDS: Enoxaparin 40 MG/0.4 ML Syringe SC (06:13)
[2024-01-31] MEDS: Metoprolol Tartrate 25 MG Tablet PO ×3 (06:14→21:06)
[2024-01-31] MEDS: Lisinopril 40 MG Tablet PO (08:17)
[2024-01-31] MEDS: Ezetimibe 10 MG Tablet PO (08:17)
[2024-01-31] MEDS: Potassium Chloride Oral Tablet 20 MEQ PO (08:17)
[2024-01-31] MEDS: Calcium Carbonate 500 MG Tablet PO ×2 (08:17→17:30)
[2024-01-31] MEDS: Clopidogrel Bisulfate 75 MG Tablet PO (08:17)
[2024-01-31] MEDS: Sertraline 100 MG Tablet PO (08:17)
[2024-01-31] MEDS: Omega-3 Acid Ethyl Esters 1 GM Capsule PO (08:17)
[2024-01-31] MEDS: Cholecalciferol (VIT D3) 25 MCG TABLET (1,000 UNITS) PO (08:17)
[2024-01-31] MEDS: Ensure Plus High Protein 120 ML LIQUID PO ×2 (08:18→21:07)
[2024-01-31] MEDS: busPIRone 5 MG Tablet PO (13:09)
[2024-01-31] MEDS: hydrALAZINE 25 MG Tablet PO (21:05)
[2024-01-31] MEDS: Atorvastatin Calcium 80 MG Tablet PO (21:06)
[2024-01-31] MEDS: traZODone 100 MG Tablet PO (21:06)
[2024-02-01] VITALS (9 sets, daily range): BP systolic 122–179; BP diastolic 40–64; PULSE 58–86; RESP 16–18; TEMP 36.8–37.4; O2SAT 96–98
[2024-02-01] MEDS: Metoprolol Tartrate 25 MG Tablet PO ×3 (05:43→21:19)
[2024-02-01] MEDS: Enoxaparin 40 MG/0.4 ML Syringe SC (05:43)
[2024-02-01] MEDS: Alendronate Sodium 70 MG Tablet PO (06:29)
[2024-02-01] MEDS: Potassium Chloride Oral Tablet 20 MEQ PO (08:35)
[2024-02-01] MEDS: Ensure Plus High Protein 120 ML LIQUID PO ×2 (08:35→21:15)
[2024-02-01] MEDS: busPIRone 5 MG Tablet PO (08:35)
[2024-02-01] MEDS: Omega-3 Acid Ethyl Esters 1 GM Capsule PO (08:35)
[2024-02-01] MEDS: Calcium Carbonate 500 MG Tablet PO ×2 (08:35→17:22)
[2024-02-01] MEDS: Cholecalciferol (VIT D3) 25 MCG TABLET (1,000 UNITS) PO (08:36)
[2024-02-01] MEDS: Clopidogrel Bisulfate 75 MG Tablet PO (08:36)
[2024-02-01] MEDS: Lisinopril 40 MG Tablet PO (08:36)
[2024-02-01] MEDS: Sertraline 100 MG Tablet PO (08:36)
[2024-02-01] MEDS: Ezetimibe 10 MG Tablet PO (08:38)
--- NOTE | 2024-02-01 10:20 | NURSING ---
pt c/o SOB, pt had wheeled self down from room to therapy room. vitals stable. see intervention. denies any other symptoms. pt concerned about new medication that was recently started Buspar. pt did received that approx at 0845. will update Dr Parikh.
--- NOTE | 2024-02-01 11:09 | NURSING ---
Dr Parikh updated on pt c/o SOB, entering orders for CT scan of chest & give xanax 30 min prior. adding clonidine. pt aware of all.
--- NOTE | 2024-02-01 11:12 | CT_ITS ---
STUDY: CTA CHEST REASON FOR EXAM: Female, 78 years old. SOB -- cast on LLE and recent FX with ORIF RADIATION DOSAGE (If Supplied By Facility): CTDIvol = ( 4.64 ) mGy, DLP = ( 159.73 ) mGycm TECHNIQUE: The examination was performed with the intravenous administration of IV 100mL Isovue-370. Post-processing of the angiographic images was performed, with multiplanar reformation and 3D reconstruction. Individualized dose optimization techniques were used for this CT. COMPARISON: None. FINDINGS: Normal enhancement of the main pulmonary artery and right and left pulmonary arteries. Normal enhancement of the bilateral peripheral pulmonary arteries. There is no demonstrated pulmonary embolism. There is atherosclerotic calcification of the aortic arch with tortuosity. There is no demonstrated aortic dissection. There are calcifications of the coronary arteries. Normal mediastinum. Normal hilar regions. Normal visualized trachea and bronchi. The lungs are well expanded. Normal pulmonary parenchyma. Normal pleura. Normal chest wall structures. There are degenerative changes of thoracic spine. Normal visualized upper abdomen. CT/CTA Chest W/WO Contrast IMPRESSION: No evidence of pulmonary embolism. Electronically Signed: Julio C Mccarthy MD at 14:49 EDT ,
[2024-02-01] MEDS: ALPRAZolam 0.25 MG Tablet PO (11:45)
[2024-02-01] MEDS: 0.9% Saline Lock 10 ML Syringe IV (11:46)
--- NOTE | 2024-02-01 13:55 | CASEMGMT ---
Social Work SW received outcome from Medicare - approval of 13 days with DC 02/06. SW phoned dtr to update. Discussed DC needs. IDT recommending 24/ care as pt needs physical assistance. Dtr stated she will stay with pt during the day and pt's son will stay with pt overnight. SW answered dtrs questions. Confirmed pt has two FWWs and transport w/c available for use. Requesting [facility]. SW to coordinate. Offered skilled HHC and list of preferences. Dtr requesting [facility] for PT/OT. Dtr to transport. Will Team and finalize DC plans. SW spoke with pt to update on DC 02/06. Pt appreciative. Plan: DC home with children support 02/06, [facility] PT/OT, [facility]. GABE HsuW
--- NOTE | 2024-02-01 14:40 | PN_ITS ---
Subjective Subjective Afebrile VSS -blood pressure control has improved significantly with increase in metoprolol to 25 mg p.o. 3 times daily. She did have a blood pressure of 215/75 last night and was given as needed hydralazine. The recheck was 114/34. She complained of being short of breath and when they took her blood pressure was elevated. She denies chest pain. She felt short of breath again today and the blood pressure was within normal limits at the time she felt short of breath. Heart rate has ranged from 56-86 over the past 48 hours. Denies lightheadedness. Maintaining appropriate oxygen saturation on RA-96 to 98% Oral intake - FOOD good FLUIDS good Discussed with nursing - Other than the SOB last night and this AM she has been doing well. Reviewed the THERAPY notes Medication list reviewed. In addition to shortness of breath she is complaining of a metallic taste in her mouth that started this a.m. She was started on BuSpar yesterday for anxiety. Dysgeusia is a potential side effect of BuSpar but occurs in less than 1% of people. She denies chest pain, chest pressure, palpitations, lightheadedness, nausea/vomiting/abdominal pain/diarrhea, dysuria and calf tenderness. she admits to feeling anxious. she is sleeping well since the Trazodone was increased to 100 mg. Objective Data Objective Data Vital Signs: Vital Signs Temp Pulse Resp BP Pulse Ox O2 Del Method 98.3 F 86 18 125/48 H 98 Room Air 02/01/24 10:19 02/01/24 14:17 02/01/24 10:19 02/01/24 14:17 02/01/24 10:19 02/01/24 10:19 Oxygen Delivery Method Room Air Weight: 116 lb 8 oz Body Mass Index (BMI) 25.1 Intake & Output: Intake and Output for Last 24 Hours 01/30/24 01/31/24 02/01/24 23:59 23:59 23:59 Intake Total 1300 / 1300 1550 / 1550 1450 / 1450 Output Total 1999 1250 / 1250 Balance -700 / -700 -425 / -425 200 / 200 Lab / Micro Data 01/28/24 05:12 01/28/24 05:12 Physical Exam Const alert and oriented x3 Constitutional Narrative: Seems anxious and a little on edge. General Appearance: cooperative HEENT moist oral mucous membranes Resp normal respiratory effort, normal air movement and clear to auscultation bilaterally Resp Narrative: No conversational dyspnea Effort and Inspection: Negative for tachypneic Cardio regular rate, regular rhythm, no murmurs, no rub and no gallops Rate: Negative for bradycardia or tachycardic GI normal to inspection, nondistended, normoactive bowel sounds, soft to palpation and non-tender GI Narrative: No guarding with palpation Extremity Extremity Narrative: Denies calf tenderness. The left distal lower extremity is in a cast. No edema in the right lower extremity. Toes on the left foot are warm with intact sensation. Skin General Skin Exam: no breakdown Rashes: no rashes Psych thought process normal and cooperative Appearance: appropriate Attitude: No agitated Mood & Affect: anxious Assessment & Plan Assessment/Plan (1) Physical debility: (2) History of fall: (3) Trimalleolar fracture of left ankle: QUALIFIERS: Encounter type: subsequent encounter Fracture type: c losed PLAN: Secondary to trauma/fall. It is likely that osteoporosis also contributed to the fracture. (4) Status post open reduction and internal fixation (ORIF) of fracture: (5) Acute blood loss as cause of postoperative anemia: (6) Hyponatremia: (7) Dehydration: (8) Insomnia: QUALIFIERS: Insomnia type: unspecified Qualified Code(s): G47.00 - Insomnia, unspecified (9) Anxiety and depression: (10) Coronary artery disease: QUALIFIERS: Coronary Disease-Associated Artery/Lesion type: [place] artery [place] vs. transplanted heart: [place] heart Associated angina: without angina Qualified Code(s): I25.10 - Atherosclerotic heart disease of [place] coronary artery without angina pectoris (11) HTN (hypertension): QUALIFIERS: Hypertension type: primary hypertension Qualified Code(s): I10 - Essential (primary) hypertension PLAN: Not adequately controlled. (12) Osteoporosis: QUALIFIERS: Osteoporosis type: age-related Encounter type: s ubsequent encounter (13) Acute dyspnea: PLAN: Need to r/o PE in this patient with hx of recent trimalleolar fracture of the left ankle and ORIF and now in a cast. PLAN: Plan 1. Continue therapy 2. Since we are unable to do an ultrasound on the distal lower extremity secondary to presence of the cast will order a CTA of the chest to rule out pulmonary embolism. Patient is agreeable to this but tells me she gets very anxious in the CT scanner so will give Xanax 0.25 mg prior to the test. 3. Check a BMP and a CBC in the a.m. 4. DC BuSpar. DC trazodone and start Klonopin 0.5 mg at at bedtime. 5. After another 1 to 2 days if the blood pressure remains well-controlled we will transition to metoprolol XL once daily to improve compliance. 6. Discussed plan of treatment with her daughter Halima who is on board with changes. Charges/Coding Visit Charges Inpatient E&M: 81141 Subs Hosp L2
[2024-02-01] MEDS: Atorvastatin Calcium 80 MG Tablet PO (21:15)
[2024-02-01] MEDS: clonazePAM 0.5 MG Tablet PO (22:10)
[2024-02-02] VITALS (8 sets, daily range): BP systolic 128–168; BP diastolic 50–57; PULSE 56–76; RESP 15–16; TEMP 36.6–36.7; O2SAT 95–98
[2024-02-02 05:23] LABS: Hematocrit 31.8 % (37-47); Hemoglobin 10.4 g/dL (12.0-15.0); Mean Corp Hgb Conc 32.7 g/dL (32-36); Mean Corpuscular Hgb 32.7 pg (27.0-32.0); Mean Platelet Vol. 9.5 fl (6.2-12.0); Platelet Count 319 K/mm3 (150-450); RBC Distribution Width CV 13.2 % (11.6-14.6); RBC Distribution Width SD 47.8 fl (35.1-43.9); Red Blood Count 3.18 M/mm3 (4.2-5.4); White Blood Count 6.2 K/mm3 (4.4-11.0)
[2024-02-02] MEDS: Enoxaparin 40 MG/0.4 ML Syringe SC (05:31)
[2024-02-02] MEDS: Metoprolol Tartrate 25 MG Tablet PO ×3 (05:31→21:06)
[2024-02-02 05:49] LABS: Anion Gap 5 (5-15); BUN 17 mg/dL (7-18); BUN/Creat Ratio 25.8 RATIO (10-20); Calcium,Total 9.1 mg/dL (8.5-10.1); Chloride 104 mmol/L (98-107); Creatinine, Serum 0.66 mg/dL (0.55-1.02); EST Glomerular Filtration Rate 92 mL/min (>60); Est Glom Filt Rate - Afr Amer 112 mL/min (>60); Estimated Creatinine Clearance 41.63 ml/min; Glucose 107 mg/dL (74-106); Potassium 4.1 mmol/L (3.5-5.1); Sodium Level 135 mmol/L (136-145)
[2024-02-02] MEDS: Calcium Carbonate 500 MG Tablet PO ×2 (07:28→17:43)
[2024-02-02] MEDS: Potassium Chloride Oral Tablet 20 MEQ PO (07:28)
[2024-02-02] MEDS: Ensure Plus High Protein 120 ML LIQUID PO ×2 (07:29→20:56)
[2024-02-02] MEDS: Lisinopril 40 MG Tablet PO (07:29)
[2024-02-02] MEDS: Cholecalciferol (VIT D3) 25 MCG TABLET (1,000 UNITS) PO (07:29)
[2024-02-02] MEDS: Sertraline 100 MG Tablet PO (07:29)
[2024-02-02] MEDS: Ezetimibe 10 MG Tablet PO (07:29)
[2024-02-02] MEDS: Omega-3 Acid Ethyl Esters 1 GM Capsule PO (07:29)
[2024-02-02] MEDS: Clopidogrel Bisulfate 75 MG Tablet PO (07:29)
--- NOTE | 2024-02-02 09:55 | PCM.PROGNOTE ---
Subjective Subjective Afebrile VSS -heart rate for the past 24 hours has ranged from 58-65. Blood pressure over the past 24 hours has ranged from 122/53 yesterday a.m. to 179/64 last night. She did not need any as needed hydralazine yesterday. Maintaining appropriate oxygen saturation on RA Oral intake - FOOD good FLUIDS good Discussed with nursing - no problems that need addressed Reviewed the THERAPY notes Medication list reviewed. She had 1 dose of PRN Xanax prior to the CT scan and it clamed her nerves and did not make her sleepy. Started on Klonopin last night for anxiety/insomnia. CTA of the chest yesterday was negative for pulmonary emboli. All lab drawn this morning was personally reviewed. Hemoglobin is 10.4 and the white blood cell count is normal. MCV is up to 100 which likely reflects increased reticulocytosis in response to anemia. Platelets are within normal limits. Sodium is up to 135 from 132. Potassium is 4.1. The BUN is down to 17 from 27 at admission. Creatinine has decreased from 0.84 at admission to 0.66. Slept well last night. Tells me that she feels a little drowsy today. States she feels less anxious today. No metallic taste in her mouth today. Denies SOB, CP, palpitations, N/D/V, dysuria and calf pain. Objective Data Objective Data Vital Signs: Vital Signs Temp Pulse Resp BP Pulse Ox O2 Del Method 98.1 F 58 L 16 168/54 H 96 Room Air 02/02/24 05:14 02/02/24 07:36 02/02/24 05:14 02/02/24 05:31 02/02/24 07:36 02/02/24 07:36 Oxygen Delivery Method Room Air Weight: 116 lb 8 oz Body Mass Index (BMI) 25.1 Intake & Output: Intake and Output for Last 24 Hours 01/31/24 02/01/24 02/02/24 23:59 23:59 23:59 Intake Total 1550 / 1550 1810 / 1810 360 / 360 Output Total 1974 1200 / 1200 Balance -425 / -425 -240 / -240 -840 / -840 Lab / Micro Data 02/02/24 05:07 02/02/24 05:07 Labs: Laboratory Results - last 24 hr 02/02/24 05:07: WBC 6.2, RBC 3.18 L, Hgb 10.4 L, Hct 31.8 L, MCV 100.0 H, MCH 32.7 H, MCHC 32.7, RDW Std Deviation 47.8 H, RDW Coeff of [place] 13.2, Plt Count 319, MPV 9.5, Sodium 135 L, Potassium 4.1, Chloride 104, Carbon Dioxide 26.0, Anion Gap 5, BUN 17, Creatinine 0.66, Estim Creat Clear Calc 41.63, Est GFR (MDRD) Af Amer 112, Est GFR (MDRD) Non-Af 92, BUN/Creatinine Ratio 25.8 H, Glucose 107 H, Calcium 9.1 Radiography Diagnostic Testing: Radiology Impression Chest CTA 02/01/24 11:12 IMPRESSION: No evidence of pulmonary embolism. Electronically Signed: Julio C Mccarthy MD at 14:49 EDT , Physical Exam Const alert and oriented x3 Constitutional Narrative: Seems a little drowsy this AM. General Appearance: cooperative HEENT moist oral mucous membranes Resp normal respiratory effort, normal air movement and clear to auscultation bilaterally Resp Narrative: No conversational dyspnea Effort and Inspection: Negative for tachypneic Cardio regular rate, regular rhythm, no murmurs, no rub and no gallops Rate: Negative for bradycardia or tachycardic GI normal to inspection, nondistended, normoactive bowel sounds, soft to palpation and non-tender GI Narrative: No guarding with palpation Skin General Skin Exam: no breakdown Rashes: no rashes Psych thought process normal and cooperative Appearance: appropriate Attitude: No agitated Mood & Affect: anxious Assessment & Plan Assessment/Plan (1) Physical debility: (2) History of fall: (3) Trimalleolar fracture of left ankle: QUALIFIERS: Encounter type: subsequent encounter Fracture type: closed PLAN: Secondary to trauma/fall. It is likely that osteoporosis also contributed to the fracture. (4) Status post open reduction and internal fixation (ORIF) of fracture: (5) Acute blood loss as cause of postoperative anemia: (6) Hyponatremia: (7) Dehydration: (8) Insomnia: QUALIFIERS: Insomnia type: unspecified Qualified Code(s): G47.00 - Insomnia, unspecified (9) Coronary artery disease: QUALIFIERS: Coronary Disease-Associated Artery/Lesion type: [place] artery [place] vs. transplanted heart: [place] heart Associated angina: without angina Qualified Code(s): I25.10 - Atherosclerotic heart disease of [place] coronary artery without angina pectoris (10) HTN (hypertension): QUALIFIERS: Hypertension type: primary hypertension Qualified Code(s): I10 - Essential (primary) hypertension PLAN: Not adequately controlled. (11) Osteoporosis: QUALIFIERS: Osteoporosis type: age-related Encounter type: subsequent encounter (12) Acute dyspnea: PLAN: Need to r/o PE in this patient with hx of recent trimalleolar fracture of the left ankle and ORIF and now in a cast. PLAN: Plan 1. Continue therapy 2. Continue Klonopin 0.5 mg at 8:30 PM nightly. If she continues to be drowsy in the a.m. will decrease the dose to 0.25 mg at 8:30 PM nightly. She is benzodiazepine na?ve. 3. Discontinue metoprolol 25 mg p.o. 3 times daily at 1155 tonight and start metoprolol 75 mg daily tomorrow a.m. 4. Continue as needed hydralazine. I am hopeful that controlling the anxiety better will help with better BP control. Charges/Coding Visit Charges Inpatient E&M: 16800 Subs Hosp L1
[2024-02-02] MEDS: 0.9% Saline Lock 10 ML Syringe IV ×2 (10:17→21:30)
--- NOTE | 2024-02-02 17:44 | NURSING ---
daughter brought in another walker for pt to use.
[2024-02-02] MEDS: clonazePAM 0.5 MG Tablet PO (20:40)
[2024-02-02] MEDS: Atorvastatin Calcium 80 MG Tablet PO (21:00)
[2024-02-02] MEDS: ALPRAZolam 0.25 MG Tablet PO (23:55)
[2024-02-03] VITALS (8 sets, daily range): BP systolic 150–174; BP diastolic 53–61; PULSE 59–77; RESP 15–16; TEMP 36.4–37.1; O2SAT 96; BMI 24.9
[2024-02-03] MEDS: Enoxaparin 40 MG/0.4 ML Syringe SC (06:25)
[2024-02-03] MEDS: Metoprolol(XL)Succ 25 MG Tablet 75 MG PO (06:26)
[2024-02-03] MEDS: hydrALAZINE 25 MG Tablet PO ×2 (07:19→16:54)
[2024-02-03] MEDS: Ezetimibe 10 MG Tablet PO (07:49)
[2024-02-03] MEDS: Lisinopril 40 MG Tablet PO (07:49)
[2024-02-03] MEDS: Calcium Carbonate 500 MG Tablet PO ×2 (07:49→16:54)
[2024-02-03] MEDS: Clopidogrel Bisulfate 75 MG Tablet PO (07:49)
[2024-02-03] MEDS: Omega-3 Acid Ethyl Esters 1 GM Capsule PO (07:49)
[2024-02-03] MEDS: Ensure Plus High Protein 120 ML LIQUID PO ×2 (07:50→20:44)
[2024-02-03] MEDS: Sertraline 100 MG Tablet PO (07:50)
[2024-02-03] MEDS: Cholecalciferol (VIT D3) 25 MCG TABLET (1,000 UNITS) PO (07:50)
[2024-02-03] MEDS: Potassium Chloride Oral Tablet 20 MEQ PO (07:50)
[2024-02-03] MEDS: Acetaminophen 325 MG Tablet 650 MG PO (18:11)
[2024-02-03] MEDS: Atorvastatin Calcium 80 MG Tablet PO (20:44)
[2024-02-03] MEDS: clonazePAM 0.5 MG Tablet 0.25 MG PO (21:01)
[2024-02-03] MEDS: ALPRAZolam 0.25 MG Tablet PO (22:17)
--- NOTE | 2024-02-04 04:10 | NURSING ---
reviewed and agree with Tariq EPSTEIN, documentation and assessment charting.
[2024-02-04 06:32] VITALS: BP 147/47; PULSE 60; RESP 15; TEMP 36.6; O2SAT 96
[2024-02-04 06:34] VITALS: BP 147/47; PULSE 60
[2024-02-04 11:04] VITALS: BP 152/52; PULSE 61
--- NOTE | 2024-02-04 11:09 | PCM.PROGNOTE ---
Subjective Subjective Pat was seen on team rounds today. Her daughter Halima was present in the room for rounds. Afebrile VSS -blood pressures are trending down. She was started on metoprolol XL 75 mg p.o. daily yesterday. Heart rate has ranged from 59-77 over the past 24 hours. Blood pressure today was 147/40 7 in the AM. Maintaining appropriate oxygen saturation on RA Oral intake - FOOD good FLUIDS good Discussed with nursing - no problems that need addressed Reviewed the THERAPY notes Medication list reviewed. Tells me that she slept well last night and she denies feeling drowsy this AM. Later told the OT she was drowsy. Klonopin was decreased to 0.25 mg Last night. Does not look drowsy when I am talking with her in therapy. Denies SOB, CP, palpitations, lightheadedness, N/V/abd pain/diarrhea/constipation, dysuria and calf pain. Denies pain in the LLE. She took a Xanax again last night at 10:1AFTER getting the Klonopin at 9 PM. This has happened 2 night in a row. Objective Data Objective Data Vital Signs: Vital Signs Temp Pulse Resp BP Pulse Ox O2 Del Method 97.9 F 61 15 152/52 H 96 Room Air 02/04/24 06:32 02/04/24 11:04 02/04/24 06:32 02/04/24 11:04 02/04/24 06:32 02/04/24 06:32 Oxygen Delivery Method Room Air Weight: 115 lb 8.356 oz Body Mass Index (BMI) 24.9 Intake & Output: Intake and Output for Last 24 Hours 02/02/24 02/03/24 02/04/24 23:59 23:59 23:59 Intake Total 1840 / 1900 1680 / 1680 840 / 840 Output Total 1800 / 1950 2200 / 2200 1120 / 1120 Balance 40 / -50 -520 / -520 -280 / -280 Lab / Micro Data 02/02/24 05:07 02/02/24 05:07 Physical Exam Const alert, oriented x3 and no apparent distress Constitutional Narrative: Seems a little drowsy this AM. General Appearance: cooperative Orientation / Consciousness: Negative for confused HEENT moist oral mucous membranes Eyes PERRL, EOMs intact bilaterally, conjunctivae normal and no scleral icterus Eyes Narrative: No mattering of the eyelashes and no discharge from the eyes. General Eye: normal appearance of both eyes Neck supple, No nodes and No no carotid bruits Neck Narrative: Carotids have brisk upstroke and good pulse volume. 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 Chest Chest: symmetrical chest wall rise Resp clear to auscultation bilaterally Resp Narrative: Denies SOB Effort and Inspection: Negative for tachypneic Cardio regular rate, regular rhythm, no rub and no gallops Cardio Narrative: No ectopy Rate: Negative for bradycardia or tachycardic GI normal to inspection, nondistended, normoactive bowel sounds, soft to palpation and non-tender GI Narrative: No guarding with palpation Extremity no calf tenderness Extremity Narrative: toes on the L foot are warm with intact sensation. Good cap refill Skin no jaundice Skin Narrative: No rashes General Skin Exam: no breakdown Rashes: no rashes Neuro moves all extremities, no focal motor deficits and no sensory deficits noted Neuro Narrative: She has a mild R facial droop......with smiling can not see as many teeth on the R side. She has never noticed this. Denies hx of stroke but, has had a L CEA. She also denies hx of [place]'s palsy. All other cranial nerves are intact bilaterally. Tongue protrudes on the midline. Psych mental status grossly normal, thought process normal, cooperative, affect normal, speech normal, activity/motor behavior normal, denies hallucinations, denies homicidal ideation and denies suicidal ideation Psych Narrative: Less anxious, sleeping well at night. Reports that she is no longer feeling anxious. Appearance: grossly normal, appropriate and well kempt Attitude: calm and No agitated Activity / Motor Behavior: appropriate eye contact Mood & Affect: anxious Assessment & Plan Assessment/Plan (1) Physical debility: (2) History of fall: (3) Trimalleolar fracture of left ankle: QUALIFIERS: Encounter type: subsequent encounter Fracture type: closed (4) Status post open reduction and internal fixation (ORIF) of fracture: (5) Acute blood loss as cause of postoperative anemia: (6) Hyponatremia: (7) Dehydration: (8) Insomnia: QUALIFIERS: Insomnia type: unspecified Qualified Code(s): G47.00 - Insomnia, unspecified (9) Coronary artery disease: QUALIFIERS: Coronary Disease-Associated Artery/Lesion type: [place] artery [place] vs. transplanted heart: [place] heart Associated angina: without angina Qualified Code(s): I25.10 - Atherosclerotic heart disease of [place] coronary artery without angina pectoris (10) HTN (hypertension): QUALIFIERS: Hypertension type: primary hypertension Qualified Code(s): I10 - Essential (primary) hypertension (11) Osteoporosis: QUALIFIERS: Osteoporosis type: age-related Encounter type: subsequent encounter (12) Acute dyspnea: (13) Anxiety and depression: PLAN: With panic attacks. Much calmer with addition of Klonopin to the drug regimen. PLAN: Plan 1. Continue therapy 2. Plan discharge home on Thursday -will have assistance 12/01 at discharge by family. 3. Discontinue Xanax. Continue Klonopin 0.25 mg at 8:30 at night. 4. Blood pressure is looking much better. Will continue metoprolol XL 75 mg daily Charges/Coding Visit Charges Inpatient E&M: 09973 Subs Hosp L2
--- NOTE | 2024-02-04 14:03 | CASEMGMT ---
Social Work IDT met with patient and dtr for Team meeting. Discussed patient's progress in PT/OT/SN. Confirmed Medicare's DC date for 02/06, home with dtr and son support. Confirmed [facility] PT/OT. Pt also requesting a w/c, along with the [facility]. SW to update [employer]. Dtr to transport. No other issues identified. SW sent updated script to [employer] via [employer]. Plan: DC home alone, but with dtr and son support, 02/06, [facility] PT/OT, 18 in w/c w/[facility] GABE HsuW
[2024-02-04 17:47] VITALS: BP 163/53; PULSE 60; RESP 17; TEMP 36.4; O2SAT 98
[2024-02-05 06:22] VITALS: BP 148/59; PULSE 67
[2024-02-05 06:28] VITALS: BP 148/59; PULSE 67; RESP 18; TEMP 36.6; O2SAT 98
[2024-02-05 08:09] VITALS: BP 125/45; PULSE 65
--- NOTE | 2024-02-05 14:02 | DCINST_ITS ---
Discharge Instructions Diet Discharge Diet: - (Low fat/low salt) Activity Discharge Activity: May Not Drive, May Shower (Cover the cast with a waterproof covering when showering. ), Use Walker (to hop into the BR ) and - (Use the wheelchair to get around inside and outside the house until you are able to bear weight on the left leg. ) Weight Bearing Status: No weight bearing (On the left leg) Keep extremity elevated above heart level: Left Leg Dressing / Incision Call your doctor if you observe: Fever of 101 or Higher, Shortness of breath, Dizziness, Fainting spells, Swelling in the ankles, Chest pain, Increased palpitations (irregular heartbeat), Calf discomfort and Uncontrolled pain Follow Up Care Please Follow Up With: Dr. Addison When: 02/10/24 at 09:30. You will need to call your PCP to schedule an appt. Test Results: Test results from this visit will be discussed in further detail at your follow- up appointment, if applicable. Discharge Plan Admission Admit Date/Time: 01/25/24 15:54 Primary Reason for Your Visit: Debility due to trimalleolar FX of L ankle Attending Provider: Adwoa Parikh Instructions Patient Instructions: Anxiety Disorders Tx, Understanding High Blood Pressure, ED Anxiety Reaction Additional Instructions / Restrictions: 1. Anxiety and depression frequently go hand in hand. Sometimes one is more prominent than the other. When you were admitted to rehab your were taking Sertraline (this treats both anxiety and depression). You were also taking Trazodone 200 mg at bedtime to help you sleep. Trazodone is an antidepressant but, it is often used to treat insomnia. You were sleeping well, eating well and very functional. You do not impress me as being significantly depressed. You were quite anxious at admission. Shortness of breath, diarrhea, restlessness, elevated BP's are all symptoms of anxiety. It can also cause your heart to race and cause trouble falling asleep at night. We had a hard time controlling your BP, even with increasing the BP meds. Sometimes BP is very difficult to treat and get under control unless anxiety is under good control. We tried a medication called Buapr but, unfortunately you had a metallic taste in your mouth with this medication. We changed the medication and you were started on a medication called Klonopin. We have been giving you this at night rather than Trazodone and you are still sleeping well and you feel calmer. You have not had any shortness of breath, chest discomfort, lightheadedness, restlessness or diarrhea since starting this medication and I notices you are calmer and smiling more. You are not perseverating on physical symptoms like you were. I plan on continuing Klonopin at discharge. In my opinion anxiety and depression are best treated by combined medication and psychotherapy. We are coming up on the 1 year anniversary of your 's passing. This is a stressor and frequently leads to an exacerbation of feelings of anxiety/depression. You recently fell and fractured your leg and now you are going to need assistance at home until the bone heals. This is a stressor. You may feel like a burden to your children and this causes stress. Psychotherapy can help you to deal with stressors without becoming overwhelmed. They teach you healthy ways to manage your stress. Since you have had counselling in the past you know that it works. You may want to consider seeing the therapist you saw when your was having issues with PTSD or the therapist from hospice. 2. In order to prevent strokes, heart attacks and other vascular disease I would like to see your BP consistently < 130/80. Since changing your BP medications around and treating the anxiety more aggressively the bottom number has always been good. The top number, also called the systolic BP, is still mildly elevated. I have had to add a third BP medication to your drug regimen because the top number is still ranging from 148-163. When I have to use 3 different drugs to get the BP under control, gama in someone with a hx of CAD or other vascular disease I start to worry that they may have renal artery steno sis. This means that the arteries to the kidneys have atherosclerosis (or narrowing) and the blood flow to the kidney is decreased. When this happens the kidney thinks the blood flow is less because you are dehydrated or your BP needs to be higher to increase the blood flow. The kidney then releases hormones that increase your BP and cause you to reabsorb salt and water in the kidney. Because the artery is stenotic or narrowed, this does not help and things do not get better. Your kidney function is good but, I think it is important to make sure you do not have renal artery stenosis because sometimes this can be fixed by dilating the artery with a catheter. The test to determine if you have renal artery stenosis is a CT scan of the renal arteries with contrast (dye). Your PCP can ordere this for you as an OP.......make sure you ask for something to allay the anxiety you have when you are in the CT scan. We gave you 0.25 mg of Xanax prior to the CT scan you had in the hospital and it worked well. 3. You are a little anemic from blood loss due to the fracture and the subsequent surgery but, the blood count has already increased and I think it will be normal again soon. 4. If you or your family have any questions after you leave rehab please feel free to call me. It was a pleasure to meet you AND also a pleasure to see Halima again. OFFICE: [phone] CELL: [phone] Discharge Orders/Prescriptions Prescriptions: New acetaminophen 325 mg Tablet 650 mg PO Q6H PRN PRN (Reason: Pain Score 1-10) Qty: 1 0RF alendronate 70 mg Tablet 70 mg PO Q7D@0700 Qty: 4 0RF amlodipine 2.5 mg Tablet 2.5 mg PO DAILY Qty: 30 0RF Rx Instructions: Take this medication with supper daily calcium carbonate 200 mg calcium (500 mg) Tablet,Chewable 500 mg PO BIDCM Qty: 1 0RF clonazepam 0.5 mg Tablet 0.25 mg PO 2030 Qty: 16 0RF Rx Instructions: Take 1/2 tab nightly about 90 minutes prior to going to bed metoprolol succinate 25 mg Tablet Extended Release 24 Hr 75 mg PO 0700 Qty: 90 0RF Rx Instructions: Take 2 tabs in the AM and 1 tab with supper. cholecalciferol (vitamin D3) 25 mcg (1,000 unit) Tablet 25 mcg PO DAILY Qty: 30 0RF Rx Instructions: This is an over the counter drug. Continued atorvastatin [Lipitor] 20 mg tablet 40 mg PO DAILY sertraline 100 mg tablet 100 mg PO DAILY Patient Comments: TAKE ONE TABLET BY MOUTH ONCE DAILY ezetimibe 10 mg tablet 10 mg PO DAILY Patient Comments: TAKE 1 (ONE) TABLET (10 MG TOTAL) BY MOUTH DAILY . omega 4-buv-lcq-fish oil [Fish Oil] 300-1,000 mg capsule 1 cap PO DAILY potassium chloride [K-Tab] 20 mEq tablet extended release 20 meq PO DAILY clopidogrel [Plavix] 75 mg tablet 75 mg PO DAILY lisinopril 40 mg tablet 40 mg PO DAILY Qty: 30 0RF Patient Comments: Take 1 (one) tablet (40 mg total) by mouth daily. Rx Instructions: Take this medication with breakfast. oxycodone 5 mg tablet 5 mg PO Q6H PRN (Reason: pain) 7 Days Qty: 15 0RF Discontinued trazodone 50 mg tablet 50 mg PO DAILY metoprolol tartrate 25 mg tablet 25 mg PO BID Patient Comments: Take 1 (one) tablet (25 mg total) by mouth 2 (two) times a day. hydrochlorothiazide 12.5 mg capsule 12.5 mg PO DAILY Patient Comments: TAKE 1 (ONE) CAPSULE (12.5 MG TOTAL) BY MOUTH DAILY . cholecalciferol (vitamin D3) 25 mcg (1,000 unit) capsule 25 mcg PO BID enoxaparin [Lovenox] 40 mg/0.4 mL syringe 40 mg subcut DAILY Referrals / Follow Up: DEBORAH Conrad [Other] (pt to make appointment ) Mahendra Hastings [Other] - 02/10/24 9:30 am Disposition Disposition (needs filled in before D/C Order can be placed): Home Health Service
[2024-02-05 14:35] VITALS: BP 146/46
[2024-02-05 18:00] VITALS: BP 142/57; PULSE 59; RESP 18; TEMP 36.8; O2SAT 97
[2024-02-05 22:00] VITALS: BP 146/48; PULSE 58
[2024-02-06 06:00] VITALS: BP 149/40; PULSE 60; RESP 16; TEMP 36.4; O2SAT 95
[2024-02-06 06:19] VITALS: BP 149/40; PULSE 60
[2024-02-06 06:54] LABS: Anion Gap 5 (5-15); BUN 14 mg/dL (7-18); BUN/Creat Ratio 24.6 RATIO (10-20); Chloride 104 mmol/L (98-107); Creatinine, Serum 0.57 mg/dL (0.55-1.02); EST Glomerular Filtration Rate 109 mL/min (>60); Est Glom Filt Rate - Afr Amer 132 mL/min (>60); Estimated Creatinine Clearance 41.63 ml/min; Glucose 103 mg/dL (74-106); Potassium 4.1 mmol/L (3.5-5.1); Sodium Level 135 mmol/L (136-145)
[2024-02-06 10:00] VITALS: BP 135/57
[2024-02-06 14:00] VITALS: BP 150/57
[2024-02-06 18:00] VITALS: BP 136/50; PULSE 73; RESP 16; TEMP 36.7; O2SAT 96
[2024-02-06 21:29] VITALS: BP 165/53; PULSE 53; RESP 18
[2024-02-07 06:00] VITALS: BP 155/62; PULSE 57; RESP 18; TEMP 36.4; O2SAT 97
[2024-02-07 06:30] VITALS: BP 155/62; PULSE 57
[2024-02-07 09:15] VITALS: BP 148/50; PULSE 61
--- NOTE | 2024-02-07 10:18 | PCM.DC.SUM ---
Providers Date of Admission: 01/25/24 Date of Discharge: 02/07/24 Primary Care Physician: Maximiliano henning Reason For Visit: left ankle orif Diagnosis Discharge Diagnosis (1) Physical debility: Status: Acute Code(s): R53.81 - Other malaise (2) History of fall: Status: Acute Code(s): Z91.81 - History of falling (3) Trimalleolar fracture of left ankle: Status: Acute Code(s): S82.852A - Displaced trimalleolar fracture of left lower leg, initial encounter for closed fracture Qualifiers: Encounter type: subsequent encounter Fracture type: closed (4) Status post open reduction and internal fixation (ORIF) of fracture: Status: Acute Code(s): Z98.890 - Other specified postprocedural states; Z87.81 - Personal history of (healed) traumatic fracture Plan: Procedure was 01/22/[address] Donnell Addison. Has appt scheduled to follow up. (5) Acute blood loss as cause of postoperative anemia: Status: Acute Code(s): D62 - Acute posthemorrhagic anemia Plan: Hemoglobin has improved from 9.6 on 01/26/2020 4-10.4 prior to discharge. (6) Hyponatremia: Status: Acute Code(s): E87.1 - Hypo-osmolality and hyponatremia Plan: Current Na+ is 135, up from 132 on 01/26/24. HCTZ was discontinued due to low sodium and dehydration. Received IV NS and BUN has decreased from 27 to 14 at DC. (7) Dehydration: Status: Resolved Code(s): E86.0 - Dehydration (8) Insomnia: Status: Chronic Code(s): G47.00 - Insomnia, unspecified Qualifiers: Insomnia type: unspecified Qualified Code(s): G47.00 - Insomnia, unspecified Plan: Currently sleeping well on Klonopin 0.25 mg at HS. (9) Coronary artery disease: Status: Chronic Code(s): I25.10 - Atherosclerotic heart disease of [place] coronary artery without angina pectoris Qualifiers: Associated angina: without angina Coronary Disease-Associated Artery/Lesion type: [place] artery [place] vs. transplanted heart: [place] heart Qualified Code(s): I25.10 - Atherosclerotic heart disease of [place] coronary artery without angina pectoris (10) HTN (hypertension): Status: Chronic Code(s): I10 - Essential (primary) hypertension Qualifiers: Hypertension type: primary hypertension Qualified Code(s): I10 - Essential (primary) hypertension Plan: Not consistently < 130/80 but, much better than at admission to rehab. Has not required any PRN Hydralazine for several days prior to DC. BP increases with anxiety. Klonopin has helped and she tells me that the anxiety is much better since the addition of Klonopin to the drug regimen. Now requiring 3 antihypertensives to control the BP. Amlodipine 2.5 mg was added on Thursday02/05/24. She has a hx of vascular disease. Am concerned about possible renal artery stenosis. Would get a CTA of the renal arteries as an OP to R/O. Goal is less than 130/80. (11) Osteoporosis: Status: Chronic Code(s): M81.0 - Age-related osteoporosis without current pathological fracture Qualifiers: Encounter type: subsequent encounter Osteoporosis type: age-related (12) Acute dyspnea: Status: Resolved Code(s): R06.00 - Dyspnea, unspecified Plan: Due to a panic attack which is no longer happening with the addition of Klonopin. CTA of the chest was negative for PE. (13) Anxiety and depression: Status: Chronic Code(s): F41.9 - Anxiety disorder, unspecified; F32.A - Depression, unspecified Plan: With panic attacks. Much calmer with addition of Klonopin to the drug regimen. Recent exacerbation due to fall/Fx/hospitalization and also to the upcoming anniversary of her 's passing in March of 2023. Has had psychotherapy in the past and I recommended to her that she consider following up with previous therapist or with hospice. Problem now is mostly anxiety and panic attacks and not depression. Sleeping well and eating well and interacting well with the staff on rehab. Plan 1. DC home today. Will have 24/7 support from family. 2. [facility] for PT/OT at DC. 3. DME includes WC and BSC. Has a walker at home. 4. Follow up with PCP within the next 2 weeks. 5. Recommended she get a BP cuff and check BP a couple times a day and keep at record to take with her to her next visit with her PCP. 6. Recommend she consider reconnecting with psychotherapy since she she is having an exacerbation of anxiety with some panic attacks 7. Consider a OP renal artery CTA to r/o Renal artery stenosis as contributing to HTN. 8. IF BP's are still > 130/80 would consider increasing the Amlodipine to 5 mg in another 7-10 days. Medications at Discharge Home Medications atorvastatin 20 mg tablet (Lipitor) 40 mg PO DAILY cholesterol 08/14/20 clopidogrel 75 mg tablet (Plavix) 75 mg PO DAILY AFIB 01/25/24 ezetimibe 10 mg tablet 10 mg PO DAILY cholesterol 01/25/24 omega 4-vfd-wvk-fish oil 300 mg-1,000 mg capsule (Fish Oil) 1 cap PO DAILY supplement 01/25/24 potassium chloride 20 mEq tablet,extended release (K-Tab) 20 meq PO DAILY supplement 01/25/24 sertraline 100 mg tablet 100 mg PO DAILY depression 01/25/24 acetaminophen 325 mg tablet 650 mg (2 x 325 mg) PO Q6H PRN PRN Pain Score 1-10 #1 TAB 02/05/24 alendronate 70 mg tablet 70 mg PO Q7D@0700 #4 tabs 02/05/24 amlodipine 2.5 mg tablet 2.5 mg PO DAILY #30 tabs 02/05/24 calcium carbonate 500 mg (2.5 x 200 mg calcium (500 mg)) PO BIDCM #1 TAB 02/05/24 cholecalciferol (vitamin D3) 25 mcg (1,000 unit) tablet 25 mcg PO DAILY #30 tabs 02/05/24 clonazepam 0.5 mg tablet 0.25 mg (1/2 x 0.5 mg) PO 2030 #16 tabs 02/05/24 lisinopril 40 mg tablet 40 mg PO DAILY blood pressure #30 tabs 02/05/24 metoprolol succinate 25 mg tablet,extended release 24 hr 75 mg (3 x 25 mg) PO 0700 #90 tabs 02/05/24 oxycodone 5 mg tablet 5 mg PO Q6H PRN pain 7 days #15 tabs 02/05/24 Hospital Course Operations - (ORIF L trimalleolar ankle fracture on 01/22/[address] Donnell Addison. ) Procedures None Summary of Care Provided Minutes Spent on Discharge: 35 Hospital Course: TAMARA FIERRO, is a 78 YO F with a PMH of coronary artery disease with history of DE, history of PTCA with stents in 2011, carotid stenosis with history of left carotid endarterectomy, hypertension (poorly controlled recently per pt and family), dyslipidemia and anxiety/depression who fell while walking her dog on 01/21/2024 and sustained a trimalleolar fx of the L ankle. She underwent open reduction internal fixation with a semitubular plate laterally, partially threaded cancellous bone screw medially and 2 cannulated screws anterior posterior for the posterior malleolar fragment on 01/22/[address] Donnell Addison MD. She is NWB on the LLE. Post op she was seen by PT/OT and acute inpt rehab was recommended at [place] from the hospital. She was transferred to the acute inpt rehab units at [facility] on 01/25/24 for 3 hours of therapy daily to restore function/independence at or near her level prior to the fall. HGB at presentation to rehab was 9.6. Sodium was low at 134 and later dropped to 132. She had been taking HCTZ for HTN. MM were very dry and she c/o lightheadedness. BUN was 27 with a creat of 0.84 and a BUN/CREAT ratio of 32.1. HCTZ was discontinued and she was hydrated with IV NS. Lightheadedness resolved and the sodium is stable at 135 at [place] with a BUN of 14. Creat is now down to 0.57 from a high of 0.84. HGB is up to 10.4 at discharge, even with better hydration. BP has been difficult to control, even prior to the discontinuation of HCTZ. She was quite anxious at admission to rehab and was having some panic attacks with SOB, diarrhea, lightheadedness, restlessness. She admitted to feeling very anxious. Metoprolol was added to the drug regimen and BP improved somewhat. The dose was gradually increased to Metoprolol XL 75 mg daily. Diastolics were consistently < 80 but, systolics were still often above 140. She was started on Buspar because we felt the anxiety was contributing to the high BP's. After 1 or 2 doses she c/o a metallic taste in her mouth which is a potential SE of Buspar. Buspar was discontinued and she was started on Klonopin 0.5 mg at HS. Trazodone ( which she had been taking for quite a while for insomnia) was discontinued. After a few days she was sleeping well at night and stated her anxiety was better. We were no longer having to give PRN Hydralazine for BP > 170/85. She felt she was drowsy in the mornings and we decreased the dose to 0.25 mg. She is sleeping well with this dose and she no longer feels drowsy in the AM. BP tends to increase in the late afternoon and early evening, gama the systolic. On 02/04/24 the systolic was still often > 140 and we elected to add Amlodipine 2.5 mg to the drug regimen. The goal for her BP is less than 130/80. She is tolerating this medication without any adverse side effects. Blood pressure for 24 hours prior to discharge has ranged from 135/57 to 165/53 at at bedtime on 02/06/2024. Heart rate has ranged from 57-73. She denies lightheadedness. She was instructed to take her BP at home a couple times a day and keep a record to take with her to her next appt with her PCP. If in another week the systolic is still > 140 would increase the amlodipine dose. she is now taking Amlodipine 2.5 mg, Lisinopril 40 mg and Metoprolol XL 75 mg. Because she has a hx of vascular disease with CAD and carotid disease I would get a CTA of the renal arteries to r/o renal artery stenosis as a contributing factor to the elevated, difficult to control BP's. I suspect her anxiety is not yet optimally controlled and this contributes to the elevated BP's. She is not presenting as being depressed so I did not increase the dose of Sertraline. I suggested she consider getting back in touch with the therapist in [place] she saw a few years ago for some additional psychotherapy. She may need to have a dose of Klonopin in the AM also. The anniversary of her 's passing is coming up in March and she has this on her mind. In addition she is worried about being a burden to her children because she will need assistance at home until the fracture heals and she is able to ambulate again. She is wooried about getting older and being able to continue living independently. Mee did well in therapy and at the time of DC she is able to do 6 sit to stands in 30 seconds with 1 upper extremity holding onto the front wheeled walker and 1 on the wheelchair while maintaining nonweightbearing on the left lower extremity. She is doing this at close SBA. She is able to hop on a modified curb step using a 3 inch curb to step on the scale with a WW at [facility]. She is able to hop 10-20 ft with a WW at [facility]. She is supervision/set up for eating, grooming, bathing, upper body dressing and lower body dressing. She requires minimal assistance for toilet transfer and toileting. She is contact-guard assist for tub/shower transfer. Mee was discharged on 02/07/24 home with family support 12/01. WC and BSC ordered with [facility]. she has a WW at home. she will have ongoing PT/OT with [facility]. An appt has been made for her to follow up with Dr. Addison and she will call to schedule an appt with Maximiliano Conrad CNP within the next 2 weeks. I recommended she consider getting a life alert system since she lives alone and falls are always a concern. Physical Exam Const alert, oriented x3 and no apparent distress Constitutional Narrative: She is appropriate and making good eye contact when talking with me. She seems calm. General Appearance: cooperative Orientation / Consciousness: Negative for confused HEENT HEENT Narrative: MM are still a little dry but, the tongue is no longer coated and they are more moist than at admission. No thrush Mouth: dry mucous membranes Eyes PERRL, EOMs intact bilaterally, conjunctivae normal and no scleral icterus Eyes Narrative: No mattering of the eyelashes and no discharge from the eyes. General Eye: normal appearance of both eyes Neck supple, No nodes and No no carotid bruits Neck Narrative: Carotids have brisk upstroke and good pulse volume. 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 Lymph Lymphatic: no lymphadenopathy noted Chest Chest: symmetrical chest wall rise Resp clear to auscultation bilaterally Resp Narrative: .Denies SOB. No conversational dyspnea Effort and Inspection: Negative for tachypneic or labored Cardio regular rate, regular rhythm, no murmurs, no rub and no gallops Cardio Narrative: No ectopy Rate: Negative for bradycardia or tachycardic GI normal to inspection, nondistended, normoactive bowel sounds, soft to palpation and non-tender GI Narrative: No guarding with palpation Extremity no calf tenderness Extremity Narrative: Toes on the L foot are warm with intact sensation. Good cap refill. The swelling is down considerably since admission. She is c/o some occasional pain on the dorsum of the left foot. I am able to get my fingers between the cast and the foot at the distal end of the calf. There is some tightness of the cast over the tarsal tunnel. The cast is scored to allow a little expansion. I told her to share this with Dr. Addison. She has not had any paresthesias of the toes. I also suggested if it feels tight at times she should elevate above the level of her heart. Skin no jaundice Skin Narrative: No rashes General Skin Exam: no breakdown Rashes: no rashes Neuro moves all extremities, no focal motor deficits and no sensory deficits noted Neuro Narrative: She has a mild R facial droop......with smiling can not see as many teeth on the R side. She has never noticed this. Denies hx of stroke but, has had a L CEA. She also denies hx of [place]'s palsy. All other cranial nerves are intact bilaterally. Tongue protrudes on the midline. Speech: speech normal Psych mental status grossly normal, thought process normal, cooperative, speech normal, activity/motor behavior normal, denies hallucinations, denies homicidal ideation and denies suicidal ideation Psych Narrative: Less anxious, sleeping well at night. Reports that she is no longer feeling anxious. Appearance: grossly normal, appropriate and well kempt Attitude: calm and No agitated Activity / Motor Behavior: appropriate eye contact Mood & Affect: anxious Weight / BMI Weight Weight: 115 lb 8.356 oz Body Mass Index (BMI) 24.9 ABG / Lab / Microbiology Data 02/02/24 05:07 02/06/24 06:09 D/C Instructions Discharge Diet: - (Low fat/low salt) Weight Bearing Status: No weight bearing (On the left leg) Keep extremity elevated above heart level: Left Leg Call your doctor if you observe: Fever of 101 or Higher, Shortness of breath, Dizziness, Fainting spells, Swelling in the ankles, Chest pain, Increased palpitations (irregular heartbeat), Calf discomfort and Uncontrolled pain Please Follow Up With: Dr. Addison When: 02/10/24 at 09:30. You will need to call your PCP to schedule an appt. Meaningful Use Info Meaningful Use Meaningful Use Diagnoses (Choose all that apply): None applicable Ischemic Stroke Statin Dosing Therapy Reference: STATIN DOSE THERAPY REFERENCE: * Patients > 75 years receive moderate or high dose statin therapy. * Patients 75 years or YOUNGER should receive HIGH intensity statin dose unless contraindicated. You will be required to document reason for non-treatment if statin daily dose does not meet guidelines. HIGH DOSE STATIN THERAPY DAILY Atorvastatin > than or = to 40 mg Rosuvastatin > than or = to 20 mg Amlodipine + Atorvastatin > than or = to 2.5/40 mg Ezetimibe + Simvastatin 10/80 mg Simvastatin 80mg Discharge Plan Admission Admit Date/Time: 01/25/24 15:54 Primary Reason for Your Visit: Debility due to trimalleolar FX of L ankle Attending Provider: Adwoa Parikh Instructions Patient Instructions: Anxiety Disorders Tx, Understanding High Blood Pressure, ED Anxiety Reaction Additional Instructions / Restrictions: 1. Anxiety and depression frequently go hand in hand. Sometimes one is more prominent than the other. When you were admitted to rehab your were taking Sertraline (this treats both anxiety and depression). You were also taking Trazodone 200 mg at bedtime to help you sleep. Trazodone is an antidepressant but, it is often used to treat insomnia. You were sleeping well, eating well and very functional. You do not impress me as being significantly depressed. You were quite anxious at admission. Shortness of breath, diarrhea, restlessness, elevated BP's are all symptoms of anxiety. It can also cause your heart to race and cause trouble falling asleep at night. We had a hard time controlling your BP, even with increasing the BP meds. Sometimes BP is very difficult to treat and get under control unless anxiety is under good control. We tried a medication called Buapr but, unfortunately you had a metallic taste in your mouth with this medication. We changed the medication and you were started on a medication called Klonopin. We have been giving you this at night rather than Trazodone and you are still sleeping well and you feel calmer. You have not had any shortness of breath, chest discomfort, lightheadedness, restlessness or diarrhea since starting this medication and I notices you are calmer and smiling more. You are not perseverating on physical symptoms like you were. I plan on continuing Klonopin at discharge. In my opinion anxiety and depression are best treated by combined medication and psychotherapy. We are coming up on the 1 year anniversary of your 's passing. This is a stressor and frequently leads to an exacerbation of feelings of anxiety/depression. You recently fell and fractured your leg and now you are going to need assistance at home until the bone heals. This is a stressor. You may feel like a burden to your children and this causes stress. Psychotherapy can help you to deal with stressors without becoming overwhelmed. They teach you healthy ways to manage your stress. Since you have had counselling in the past you know that it works. You may want to consider seeing the therapist you saw when your was having issues with PTSD or the therapist from hospice. 2. In order to prevent strokes, heart attacks and other vascular disease I would like to see your BP consistently < 130/80. Since changing your BP medications around and treating the anxiety more aggressively the bottom number has always been good. The top number, also called the systolic BP, is still mildly elevated. I have had to add a third BP medication to your drug regimen because the top number is still ranging from 148-163. When I have to use 3 different drugs to get the BP under control, gama in someone with a hx of CAD or other vascular disease I start to worry that they may have renal artery stenosis. This means that the arteries to the kidneys have atherosclerosis (or narrowing) and the blood flow to the kidney is decreased. When this happens the kidney thinks the blood flow is less because you are dehydrated or your BP needs to be higher to increase the blood flow. The kidney then releases hormones that increase your BP and cause you to reabsorb salt and water in the kidney. Because the artery is stenotic or narrowed, this does not help and things do not get better. Your kidney function is good but, I think it is important to make sure you do not have renal artery stenosis because sometimes this can be fixed by dilating the artery with a catheter. The test to determine if you have renal artery stenosis is a CT scan of the renal arteries with contrast (dye). Your PCP can ordere this for you as an OP.......make sure you ask for something to allay the anxiety you have when you are in the CT scan. We gave you 0.25 mg of Xanax prior to the CT scan you had in the hospital and it worked well. 3. You are a little anemic from blood loss due to the fracture and the subsequent surgery but, the blood count has already increased and I think it will be normal again soon. 4. If you or your family have any questions after you leave rehab please feel free to call me. It was a pleasure to meet you AND also a pleasure to see Halima again. OFFICE: [phone] CELL: [phone] Discharge Orders/Prescriptions Prescriptions: New acetaminophen 325 mg Tablet 650 mg PO Q6H PRN PRN (Reason: Pain Score 1-10) Qty: 1 0RF alendronate 70 mg Tablet 70 mg PO Q7D@0700 Qty: 4 0RF amlodipine 2.5 mg Tablet 2.5 mg PO DAILY Qty: 30 0RF Rx Instructions: Take this medication with supper daily calcium carbonate 200 mg calcium (500 mg) Tablet,Chewable 500 mg PO BIDCM Qty: 1 0RF clonazepam 0.5 mg Tablet 0.25 mg PO 2030 Qty: 16 0RF Rx Instructions: Take 1/2 tab nightly about 90 minutes prior to going to bed metoprolol succinate 25 mg Tablet Extended Release 24 Hr 75 mg PO 0700 Qty: 90 0RF Rx Instructions: Take 2 tabs in the AM and 1 tab with supper. cholecalciferol (vitamin D3) 25 mcg (1,000 unit) Tablet 25 mcg PO DAILY Qty: 30 0RF Rx Instructions: This is an over the counter drug. Continued atorvastatin [Lipitor] 20 mg tablet 40 mg PO DAILY sertraline 100 mg tablet 100 mg PO DAILY Patient Comments: TAKE ONE TABLET BY MOUTH ONCE DAILY ezetimibe 10 mg tablet 10 mg PO DAILY Patient Comments: TAKE 1 (ONE) TABLET (10 MG TOTAL) BY MOUTH DAILY . omega 3-dsj-aqq-fish oil [Fish Oil] 300-1,000 mg capsule 1 cap PO DAILY potassium chloride [K-Tab] 20 mEq tablet extended release 20 meq PO DAILY clopidogrel [Plavix] 75 mg tablet 75 mg PO DAILY lisinopril 40 mg tablet 40 mg PO DAILY Qty: 30 0RF Patient Comments: Take 1 (one) tablet (40 mg total) by mouth daily. Rx Instructions: Take this medication with breakfast. oxycodone 5 mg tablet 5 mg PO Q6H PRN (Reason: pain) 7 Days Qty: 15 0RF Discontinued trazodone 50 mg tablet 50 mg PO DAILY metoprolol tartrate 25 mg tablet 25 mg PO BID Patient Comments: Take 1 (one) tablet (25 mg total) by mouth 2 (two) times a day. hydrochlorothiazide 12.5 mg capsule 12.5 mg PO DAILY Patient Comments: TAKE 1 (ONE) CAPSULE (12.5 MG TOTAL) BY MOUTH DAILY . cholecalciferol (vitamin D3) 25 mcg (1,000 unit) capsule 25 mcg PO BID enoxaparin [Lovenox] 40 mg/0.4 mL syringe 40 mg subcut DAILY Referrals / Follow Up: DEBORAH Conrad [Other] - 02/15/24 11:30 am () Mahendra Hastings [Other] - 02/10/24 9:30 am Disposition Disposition (needs filled in before D/C Order can be placed): Home Health Service Charges/Coding Visit Charges Inpatient E&M: 56949 Disch Hosp >30min
--- NOTE | 2024-02-07 13:30 | NURSING ---
Patient and daughter given dc instruct and verbalized understanding.
== END 2024-02-07 13:30 | disposition home health service (06) | DRG 560 ==
PROVIDERS: Admitting Provider Internal Medicine; Visit Provider Internal Medicine
DX: S82.852D Displaced trimalleolar fracture of left lower leg, subsequent encounter for closed fracture with routine healing (principal); D62 Acute posthemorrhagic anemia; E87.1 Hypo-osmolality and hyponatremia; I10 Essential (primary) hypertension; F32.A Depression, unspecified; I25.10 Atherosclerotic heart disease of native coronary artery without angina pectoris; F41.9 Anxiety disorder, unspecified; E86.0 Dehydration; E78.5 Hyperlipidemia, unspecified; W19.XXXD Unspecified fall, subsequent encounter; Z95.5 Presence of coronary angioplasty implant and graft; Z79.02 Long term (current) use of antithrombotics/antiplatelets; G47.00 Insomnia, unspecified; Z87.891 Personal history of nicotine dependence; Z79.01 Long term (current) use of anticoagulants; Z79.899 Other long term (current) drug therapy; M81.0 Age-related osteoporosis without current pathological fracture; F41.0 Panic disorder [episodic paroxysmal anxiety]; R29.810 Facial weakness
CPT/HCPCS: 36415; 71275; 80048; 80053; 81001; 82306; 82962; 83036; 83735; 84100; 85014; 85018; 85025; 85027; 97110; 97116; 97162; 97166; 97530; 97535; 97542; 97802; 97803; J7030; Q9967; A4216